=== PATIENT | male | born 1945 | race Caucasian/White ===

== ENCOUNTER → 2020-02-01 07:18 | Outpatient (CLI) | payer MEDICARE, OTHER, SELFPAY ==
[2020-02-01 08:40] LABS: Alanine Aminotransferase 18 IU/L (<50); Albumin Globulin Ratio 1.3 (1.0-2.8); Alkaline Phosphatase 79 U/L (38-126); Aspartate Aminotransferase 26 IU/L (17-59); BUN Creatinine Ratio 26.7 (6-22); Bilirubin Total 0.4 mg/dL (0.2-1.3); Blood Urea Nitrogen 24 mg/dL (9-20); Calcium 9.2 mg/dL (8.4-10.2); Carbon Dioxide 33 mmol/L (22-32); Chloride 104 mmol/L (98-107); Cholesterol 162 mg/dL (140-199); Estimated Glomerular Filt Rate > 60.0 mL/min (>60); Glucose 104 mg/dL (80-110); HDL Cholesterol 53 mg/dL (40-60); HEMOLYSIS < 15 (0-50); LDL Cholesterol Calculated 85 mg/dL (<100); Potassium 4.2 mmol/L (3.4-5.1); Sodium 138 mmol/L (137-145); Triglycerides 121 mg/dL (35-150)
== END ==
PROVIDERS: PCP Family Medicine; Referring Provider Family Medicine; Visit Provider Family Medicine
DX: E78.5 Hyperlipidemia, unspecified (principal); I10 Essential (primary) hypertension; R13.10 Dysphagia, unspecified
CPT/HCPCS: 36415; 80053; 80061; 82043; 82570

== ENCOUNTER → 2020-02-21 11:14 | Outpatient (CLI) | payer MEDICARE, OTHER, SELFPAY ==
--- NOTE | 2020-02-21 11:15 | DI.RAD.S_ITS ---
PROCEDURE: FL BARIUM SWALLOW INDICATIONS: difficulty swallowing solids COMPARISON: None. FINDINGS: Function: There is decrease in delayed esophageal peristalsis. No elicited gastroesophageal reflux. There is delayed transit of a calibrated barium tablet through the esophagus , which persisted till the end of the examination Morphology: Air-contrast images demonstrate normal mucosal morphology. Single contrast views show no esophageal strictures, extrinsic mass effects, or diverticula. Limited images of the stomach demonstrate normal appearance. IMPRESSION: Esophageal dysmotility as above. Mild ill-defined narrowing of the upper esophagus at the level of the thoracic inlet. Of note, there was prolonged delayed transit of a calibrated barium tablet during the entire examination at this area. Technically, cannot exclude mild stricture. Further evaluation of this finding could be performed with endoscopy as clinical suspicion dictates. Dictated by: Levy Corley M.D. on 02/21/2020 at 13:02 Approved by: Levy Corley M.D. on 02/21/2020 at 13:06
--- NOTE | 2020-02-21 11:15 | DI.RAD.S_ITS ---
PROCEDURE: XR SHOULDER RT MIN 2V INDICATIONS: Chronic right shoulder pain TECHNIQUE: 3 views of the shoulder were acquired. COMPARISON: None. FINDINGS: Bones: No fractures or dislocations. No suspicious bony lesions. Visualized ribs appear intact. AC joint degeneration, with chronic ununited osteophytes. Scattered degenerative subchondral sclerosis and spurring. Glenohumeral joint degeneration, mild. Soft tissues: No suspicious soft tissue calcifications. IMPRESSION: Mild right shoulder joint degeneration. If the patient's pain or other symptoms persist, consider further evaluation with MRI Dictated by: Levy Corley M.D. on 02/21/2020 at 13:38 Approved by: Levy Corley M.D. on 02/21/2020 at 13:39
== END ==
PROVIDERS: PCP Family Medicine; Referring Provider Family Medicine; Visit Provider Family Medicine
DX: M19.011 Primary osteoarthritis, right shoulder (principal); R13.10 Dysphagia, unspecified
CPT/HCPCS: 73030; 74220

== ENCOUNTER → 2020-03-08 09:43 | Outpatient (CLI) | payer MEDICARE, OTHER, SELFPAY ==
[2020-03-08] MEDS: COVID-19 VACC #1, MRNA(MOD) 100 MCG/0.5 ML VIAL IM (09:45)
== END ==
PROVIDERS: PCP Family Medicine; Visit Provider Internal Medicine
DX: Z23 Encounter for immunization (principal)
CPT/HCPCS: 0011A; 91301

== ENCOUNTER → 2020-03-16 10:48 | Outpatient (CLI) | payer MEDICARE, OTHER, SELFPAY ==
[2020-03-16 14:41] LABS: COVID19 -Nasal RAPID Negative (Negative)
== END ==
PROVIDERS: PCP Family Medicine; Visit Provider Nurse Practitioner
DX: Z01.812 Encounter for preprocedural laboratory examination (principal); Z20.822 Contact with and (suspected) exposure to COVID-19
CPT/HCPCS: 87635; C9803

== ENCOUNTER 2020-03-18 09:43 | Day surgery (SDC) | payer MEDICARE, OTHER, SELFPAY ==
[2020-03-18] VITALS (7 sets, daily range): BP systolic 126–171; BP diastolic 70–84; PULSE 70–95; RESP 9–17; TEMP 36.2–37.1; O2SAT 92–99; BMI 30.1
[2020-03-18] MEDS: LACTATED RINGERS 1,000 ML 200 ML IV (10:23)
--- NOTE | 2020-03-18 11:19 | PM.PREOP ---
Pre-operative Note Interval Note History & Physical reviewed/Exam performed by Physician: Yes Changes to H&P: No
[2020-03-18] MEDS: LIDOCAINE 4% SOLN 50 ML 20 ML TOP (11:40)
[2020-03-18] MEDS: fentaNYL 250 MCG/5 ML INJ IV (11:42)
[2020-03-18] MEDS: MIDAZOLAM 5 MG/5 ML VIAL IV (11:43)
--- NOTE | 2020-03-18 11:46 | PM.OP.ENDO ---
Operative Date/Time/Diagnoses Date of procedure: 03/18/20 Time of procedure: 11:46 Pre-op diagnosis: dysphagia Post-op diagnosis: same Procedure & Clinicians Study performed: esophagoduodenoscopy Same procedure as scheduled: Yes Indications: 74M with dysphagia to solid food no stricture on esophagram. Surgeon: Bo De La Cruz Procedure Notes Procedure in detail: Patient placed in left lateral decubitus position. Time out was performed. Procedural sedation was administered with Versed and Fentanyl. A bite block was placed. the scope was inserted into the mouth and into the proximal esophagus. At 20 cm from the incisors in the superior aspect of the esophagus there was circumferential stenosis of an approximately 4 cm segment. The EGD scope barely passed through this but I was able to intubate the stomach. The esophageal mucosa here was especially friable. A superficial mucosa tear was seen at the area of stenosis after passing the scope through, and given this I elected to perform no biopsy. The pylorus was intubated and the duodenum was normal to the 2nd portion. The scope was retroflexed within the stomach and there was a small hiatal hernia. No ulcers, or gastritis. The scope was withdrawn into the esophagus the Z line was seen at 40 cm from the incisions. There was no Sanchez's esophagitis, masses or strictures. Stomach was desufflated and scope removed. Patient tolerated procedure well. Findings: other findings (esophageal stenosis) Specimen(s): none sent Complications: none Impression: esophageal stenosis Post-procedure Recommendations: Other recommendation (refer to [facility] thoracic surgery) Disposition: same day surgery
--- NOTE | 2020-03-18 11:47 | SUR.OPER ---
PATIENT TOLERATED PROCEDURE WELL,VITAL SIGNS STABLE
== END 2020-03-18 12:32 | disposition home or self-care (01) ==
PROVIDERS: PCP Family Medicine; Referring Provider Surgery; Visit Provider Surgery
PROC: 0DJ08ZZ Inspection of Upper Intestinal Tract, Via Natural or Artificial Opening Endoscopic (ICD-10-PCS; CPT 43235; principal; 2020-03-18 10:45)
DX: K22.2 Esophageal obstruction (principal); I10 Essential (primary) hypertension; E78.5 Hyperlipidemia, unspecified; K44.9 Diaphragmatic hernia without obstruction or gangrene
CPT/HCPCS: 43235; J2250; J3010

== ENCOUNTER → 2020-03-29 09:04 | Outpatient (CLI) | payer MEDICARE, OTHER, SELFPAY ==
[2020-04-01 11:36] LABS: Fecal Immunochemical Test Negative (Negative)
== END ==
PROVIDERS: PCP Family Medicine; Referring Provider Family Medicine; Visit Provider Family Medicine
DX: Z12.11 Encounter for screening for malignant neoplasm of colon (principal)
CPT/HCPCS: 82274

== ENCOUNTER → 2020-04-03 09:07 | Outpatient (CLI) | payer MEDICARE, OTHER, SELFPAY ==
--- NOTE | 2020-04-03 09:08 | DI.US.S_ITS ---
PROCEDURE: US ABD AORTA ANEURYSM SCREEN INDICATIONS: ABDOMINAL AORTIC ANERUSYM SCREENING TECHNIQUE: Real time scanning was performed of the aorta and iliac arteries, with image documentation. COMPARISON: None. FINDINGS: Aorta: Proximal aortic diameter measures 2.9 cm. Mid-aorta measures 1.7 cm. Distal aortic diameter is 2 cm. Iliac arteries: Right common iliac artery measures 1.4 cm. Left common iliac artery measures 1.3 cm. IMPRESSION: Negative for aneurysm. Dictated by: Chivo Hawthorne M.D. on 04/03/2020 at 9:36 Approved by: Chivo Hawthoren M.D. on 04/03/2020 at 9:36
== END ==
PROVIDERS: PCP Family Medicine; Referring Provider Family Medicine; Visit Provider Family Medicine
DX: Z13.6 Encounter for screening for cardiovascular disorders (principal); Z87.891 Personal history of nicotine dependence
CPT/HCPCS: 76706

== ENCOUNTER → 2020-04-05 08:45 | Outpatient (CLI) | payer MEDICARE, OTHER, SELFPAY ==
[2020-04-05] MEDS: COVID-19 VACC #2, MRNA(MOD) 100 MCG/0.5 ML VIAL IM (08:49)
== END ==
PROVIDERS: PCP Family Medicine; Visit Provider Internal Medicine
DX: Z23 Encounter for immunization (principal)
CPT/HCPCS: 0012A; 91301

== ENCOUNTER → 2021-11-22 11:06 | Outpatient (CLI) | payer MEDICARE, OTHER, SELFPAY ==
[2021-11-22 12:24] LABS: COVID19 -Nasal RAPID Negative (Negative)
== END ==
PROVIDERS: PCP Family Medicine; Visit Provider Registered Nurse
DX: Z20.822 Contact with and (suspected) exposure to COVID-19 (principal)
CPT/HCPCS: 87635

== ENCOUNTER → 2023-08-07 09:41 | Outpatient (CLI) | payer MEDICARE, OTHER, SELFPAY ==
--- NOTE | 2023-08-07 09:43 | DI.CT.S_ITS ---
PROCEDURE: CT CHEST WO CON INDICATIONS: Pulmonary nodule TECHNIQUE: Noncontrast 5 mm thick sections acquired from the pulmonary apices to the posterior costophrenic angles. 1 mm lung window, 5 mm thick coronal and sagittal and 7 mm axial MIP reformats were then acquired. For radiation dose reduction, the following was used: automated exposure control, adjustment of mA and/or kV according to patient size. COMPARISON: Outside Facility, RG, CT THORAX/ABDOMEN/PELVIS WITH CONTRAST, 04/10/2020, 12:33. FINDINGS: Image quality: Diagnostic. Lower Neck: No enlarged lymph nodes. Thyroid: No thyroid nodules which require sonographic follow up, per consensus guidelines. Axillae: No enlarged lymph nodes. Chest Wall: Unremarkable. Bones: Unremarkable. Lungs and Pleura: No pneumothorax or pleural effusions. A 6 mm pulmonary nodule in the right upper lobe is stable, previous image 46 of series 3 and current image 125 of series 3. There is a 5 mm stable right upper lobe pulmonary nodule on current image 78 of series 3 and prior image 28 of series 3. is stable in size, present on image 78 of series 3. Other pulmonary findings are stable. Again noted is cystic bronchiectasis with bronchial wall thickening present in the left lower lobe with tree-in-bud opacities. There is some mucous plugging. There is mild bronchiectasis in the other lobes. There is mild tree-in-bud opacity present in the right upper lobe. Heart: Heart size is normal. No pericardial effusion. Thoracic Vessels: The aorta and pulmonary arteries demonstrate normal size. Mediastinum and Fannie: No enlarged lymph nodes. Esophagus: No wall thickening. No hiatal hernia. Upper Abdomen: Visualized upper abdomen solid organs and bowel loops appear normal. IMPRESSION: 1. Stable pulmonary nodules. 2. Other pulmonary findings are stable, including bronchiectasis with bronchial wall thickening in all lobes, most notably in the left lower lobe, as well as tree-in-bud opacities in the left lower lobe and right upper lobe. Dictated by: Everett Lema M.D. on 08/17/2023 at 14:42 Approved by: Everett Lema M.D. on 08/17/2023 at 14:50
== END ==
PROVIDERS: PCP Family Medicine; Referring Provider Family Medicine; Visit Provider Family Medicine
DX: R91.8 Other nonspecific abnormal finding of lung field (principal); J47.9 Bronchiectasis, uncomplicated
CPT/HCPCS: 71250

== ENCOUNTER → 2023-08-11 07:52 | Outpatient (CLI) | payer MEDICARE, OTHER, SELFPAY ==
[2023-08-11 08:33] LABS: Add Manual Diff / Slide Review NO; Basophils Absolute Auto 100 /uL (0-100); Basophils Percent Auto 0.8 % (0-2); Eosinophils Absolute Auto 200 /uL (0-450); Eosinophils Percent Auto 3.3 % (2-4); Hematocrit 40.9 % (41-53); Hemoglobin 13.5 g/dL (13.5-17.5); Lymphocytes Absolute Auto 1300 /uL (1100-4500); Lymphocytes Percent Auto 20.2 % (25-40); Mean Corpuscular HGB Conc 33.1 % (30-36); Mean Corpuscular Hemoglobin 29.2 PG (26-34); Mean Corpuscular Volume 88.2 fL (80-100); Monocytes Absolute Auto 600 /uL (0-900); Monocytes Percent Auto 9.7 % (3-14); Neutrophils Absolute Auto 4100 /uL (1500-7000); Platelet Count 236 X10^3/uL (150-400); Red Blood Cell Count 4.63 X10^6/uL (4.5-5.9); Red Cell Distribution Width 13.9 % (11.6-14.8); White Blood Cell Count 6.2 X10^3/uL (4.5-11.0)
[2023-08-11 08:37] LABS: Alanine Aminotransferase 23 IU/L (<50); Albumin Globulin Ratio 1.3 (1.0-2.8); Alkaline Phosphatase 70 U/L (38-126); Aspartate Aminotransferase 25 IU/L (17-59); BUN Creatinine Ratio 19.3 (6-22); Bilirubin Total 0.7 mg/dL (0.2-1.3); Blood Urea Nitrogen 22 mg/dL (9-20); Calcium 9.1 mg/dL (8.4-10.2); Carbon Dioxide 29 mmol/L (22-32); Chloride 107 mmol/L (98-107); Cholesterol 112 mg/dL (140-199); Estimated Glomerular Filt Rate > 60 mL/min (>60); Globulin 3.1 g/dL (1.7-4.1); Glucose 109 mg/dL (80-110); HDL Cholesterol 46 mg/dL (40-60); HEMOLYSIS < 15 (0-50); LDL Cholesterol Calculated 55 mg/dL (<100); Potassium 4.3 mmol/L (3.4-5.1); Sodium 141 mmol/L (137-145); Total Protein 7.1 g/dL (6.3-8.2); Triglycerides 57 mg/dL (35-150)
[2023-08-11 08:49] LABS: Creatinine Urine Random 100.96 mg/dL
[2023-08-11 09:02] LABS: TSH w/ Reflex to FT4 2.44 uIU/mL (0.47-4.68)
[2023-08-11 09:05] LABS: Prostate Specific Antigen Scrn 0.782 ng/mL (0.1-4.0)
[2023-08-11 10:03] LABS: Microalbumin Urine Random 71.7 mg/dL (0-1.6)
[2023-08-12 07:11] LABS: Apolipoprotein B 61 mg/dL (<90)
[2023-08-12 15:01] LABS: Hep C Virus Ab w/Reflex Quant NEGATIVE s/c (NEGATIVE)
== END ==
PROVIDERS: PCP Family Medicine; Referring Provider Family Medicine; Visit Provider Family Medicine
DX: Z00.00 Encounter for general adult medical examination without abnormal findings (principal); K22.2 Esophageal obstruction; E78.5 Hyperlipidemia, unspecified; Z12.5 Encounter for screening for malignant neoplasm of prostate; I10 Essential (primary) hypertension; Z87.891 Personal history of nicotine dependence
CPT/HCPCS: 36415; 80053; 80061; 82043; 82172; 82570; 84443; 85025; 86803; G0103

== ENCOUNTER → 2023-09-02 07:54 | Outpatient (CLI) | payer MEDICARE, OTHER, SELFPAY ==
--- NOTE | 2023-09-02 07:57 | DI.ECHO.S_ITS ---
[facility] : : [address] : : [place] : : [id number] : : Phone: [phone] Echocardiogram Report + + :Name: EDELMIRA BENTLEY Study Date: 09/02/2023 Height: 69 in : :Hospital ReadingLocation: Weight: 190 lb : : Gender: Male BSA: 2.0 m2 : :: 1945 Age: 78 yrs BP: 130/72 mmHg: :Reason For Study: NEW ATRIAL FIBRILLATION : :Ordering Physician: AALIYAH, : :BRUNO Performed By: Katina Cole : :Referring: BRUNO FISCHER : + + Interpretation Summary 1) Normal left ventricular thickness, size, wall motion, and systolic function (EF 55-60%). 2) Upper normal right ventricular size with normal function. 3) No significant valvular abnormalities. 4) No prior Echo available for comparison. Procedure: A two-dimensional transthoracic echocardiogram with color flow and Doppler was performed. The study quality was technically adequate. There is no prior echocardiogram noted for this patient. The patient was in atrial fibrillation with heart rates between 76-96 bpm during the exam. Left Ventricle: The left ventricle is normal in size and wall thickness. The ejection fraction is estimated to be 55-60%. Left ventricular systolic function appears normal without focal wall motion abnormalities. Diastolic function could not be accurately assessed due to atrial fibrillation. Right Ventricle: The right ventricle is normal in size and function. Atria: The left atrial size is normal. The right atrium is moderately dilated. There is no Doppler evidence for an interatrial shunt. Mitral Valve: The mitral valve is normal in structure and function. There is trace mitral regurgitation. Aortic Valve: The aortic valve is trileaflet. The aortic valve opens well. There is no aortic valve stenosis. There is trace aortic regurgitation. Tricuspid Valve: The tricuspid valve leaflets are thin and pliable. There is mild tricuspid regurgitation. The right ventricular systolic pressure is estimated to be at least 29 mmHg based on an estimated right atrial pressure of 8 mm Hg. Pulmonic Valve: The pulmonic valve leaflets are thin and pliable; valve motion is normal. There is no pulmonic valvular regurgitation. Great Vessels: The aortic root is normal size. The dimensions of the ascending aorta are normal. The IVC is dilated (diameter is greater than 2.1 cm) yet it collapses greater than 50% with a sniff. This suggests a right atrial pressure of 8 mm Hg. Pericardium/ Pleura There is no pericardial effusion. There is no pleural effusion. MMode/2D Measurements & Calculations LVIDd: 4.6 cm LVOT diam: 2.1 cm LVIDs: 2.9 cm Ao root diam: 3.4 cm FS: 36.1 % asc Aorta Diam: 3.1 cm IVSd: 0.96 cm Ao Arch Diam (Prox Trans): 2.6 cm LVPWd: 0.82 cm LV thompson. diameter/BSA (cm/m^2): 2.3 LV sys. diameter/BSA (cm/m^2): 1.4 LA A2 area: 20.6 cm2 RA long axis: 5.9 cm LA A4 area: 18.5 cm2 RA area: 24.7 cm2 LA length (vol): 6.2 cm RA vol: 87.9 ml LA vol: 51.7 ml RA : 43.5 ml/m2 LA vol index: 25.6 ml/m2 IVC diam: 2.1 cm RVD1 (basal): 4.0 cm RVD2 (mid): 3.4 cm TAPSE: 1.9 cm Doppler Measurements & Calculations Ao V2 max: 112.0 cm/sec LVOT Max Roddy: 67.3 cm/sec Ao V2 mean: 78.7 cm/sec LV V1 max P.8 mmHg Ao max P.1 mmHg LV V1 VTI: 14.3 cm Ao mean P.8 mmHg EDUARD(I,D): 2.2 cm2 Ao V2 VTI: 22.3 cm EDUARD(V,D): 2.1 cm2 sev ratio: 0.64 EDUARD indexed to BSA (cm^2/m^2): 1.1 MV E max roddy: 94.6 cm/sec TR max roddy: 231.2 cm/sec MV A max roddy: 1.6 cm/sec TR max P.4 mmHg MV E/A: 59.3 PA V2 max: 67.5 cm/sec Med Peak E' Roddy: 14.5 cm/sec PA V2 mean: 48.2 cm/sec E/E' med: 6.5 PA mean P.0 mmHg Lat Peak E' Roddy: 11.9 cm/sec PA pr(Accel): 44.7 mmHg E/E' lat: 8.0 E/e' average: 7.2 MV dec time: 0.21 sec SV(LVOT): 50.0 ml Reading Physician:11:10 AM
== END ==
PROVIDERS: PCP Family Medicine; Referring Provider Family Medicine; Visit Provider Family Medicine
DX: I07.1 Rheumatic tricuspid insufficiency (principal); I48.91 Unspecified atrial fibrillation
CPT/HCPCS: 93306

== ENCOUNTER → 2023-09-07 08:58 | Outpatient (CLI) | payer MEDICARE, OTHER, SELFPAY ==
[2023-09-07 10:00] LABS: Alanine Aminotransferase 18 IU/L (<50); Albumin 3.9 g/dL (3.5-5.0); Albumin Globulin Ratio 1.4 (1.0-2.8); Alkaline Phosphatase 71 U/L (38-126); Aspartate Aminotransferase 23 IU/L (17-59); BUN Creatinine Ratio 16.7 (6-22); Bilirubin Total 0.7 mg/dL (0.2-1.3); Blood Urea Nitrogen 19 mg/dL (9-20); Calcium 8.7 mg/dL (8.4-10.2); Carbon Dioxide 29 mmol/L (22-32); Chloride 106 mmol/L (98-107); Estimated Glomerular Filt Rate > 60 mL/min (>60); Globulin 2.8 g/dL (1.7-4.1); Glucose 109 mg/dL (80-110); HEMOLYSIS < 15 (0-50); Potassium 4.4 mmol/L (3.4-5.1); Sodium 138 mmol/L (137-145); Total Protein 6.7 g/dL (6.3-8.2)
[2023-09-07 10:35] LABS: Creatinine Urine Random 77.03 mg/dL
[2023-09-07 14:59] LABS: Microalbumin Urine Random 65.8 mg/dL (0-1.6)
== END ==
PROVIDERS: PCP Family Medicine; Referring Provider Family Medicine; Visit Provider Family Medicine
DX: I10 Essential (primary) hypertension (principal); E78.5 Hyperlipidemia, unspecified; Z87.891 Personal history of nicotine dependence; I48.91 Unspecified atrial fibrillation
CPT/HCPCS: 36415; 80053; 82043; 82570

== ENCOUNTER → 2023-09-10 16:13 | Outpatient (CLI) | payer MEDICARE, OTHER, SELFPAY | PROVIDERS: PCP Family Medicine; Visit Provider Student in an Organized Health Care Education/Training Program | DX: J47.9 Bronchiectasis, uncomplicated (principal) | CPT/HCPCS: 87070; 87205 ==

== ENCOUNTER → 2023-10-22 12:10 | Outpatient (CLI) | payer MEDICARE, OTHER, SELFPAY ==
[2023-10-22 13:42] LABS: Add Manual Diff / Slide Review NO; Basophils Absolute Auto 100 /uL (0-100); Basophils Percent Auto 0.8 % (0-2); Eosinophils Absolute Auto 300 /uL (0-450); Eosinophils Percent Auto 4.3 % (2-4); Hematocrit 40.8 % (41-53); Hemoglobin 13.5 g/dL (13.5-17.5); Lymphocytes Absolute Auto 1200 /uL (1100-4500); Lymphocytes Percent Auto 16.8 % (25-40); Monocytes Absolute Auto 600 /uL (0-900); Monocytes Percent Auto 8.5 % (3-14); Neutrophils Absolute Auto 4900 /uL (1500-7000); Neutrophils Percent Auto 69.6 % (50-75); Platelet Count 256 X10^3/uL (150-400); Red Blood Cell Count 4.64 X10^6/uL (4.5-5.9); Red Cell Distribution Width 14.2 % (11.6-14.8)
[2023-10-22 14:05] LABS: BUN Creatinine Ratio 21.3 (6-22); Blood Urea Nitrogen 26 mg/dL (9-20); Calcium 9.1 mg/dL (8.4-10.2); Carbon Dioxide 27 mmol/L (22-32); Chloride 106 mmol/L (98-107); Estimated Glomerular Filt Rate 60 mL/min (>60); Glucose 114 mg/dL (80-110); HEMOLYSIS < 15 (0-50); Potassium 4.4 mmol/L (3.4-5.1); Sodium 139 mmol/L (137-145)
== END ==
PROVIDERS: PCP Family Medicine; Referring Provider Internal Medicine; Visit Provider Internal Medicine
DX: I48.91 Unspecified atrial fibrillation (principal)
CPT/HCPCS: 36415; 80048; 85025

== ENCOUNTER → 2023-12-13 09:48 | Outpatient (CLI) | payer MEDICARE, OTHER, SELFPAY ==
[2023-12-13 11:19] LABS: Add Manual Diff / Slide Review NO; Basophils Absolute Auto 0 /uL (0-100); Basophils Percent Auto 0.6 % (0-2); Eosinophils Absolute Auto 200 /uL (0-450); Eosinophils Percent Auto 2.5 % (2-4); Hematocrit 38.9 % (41-53); Hemoglobin 12.9 g/dL (13.5-17.5); Lymphocytes Absolute Auto 900 /uL (1100-4500); Mean Corpuscular HGB Conc 33.1 % (30-36); Mean Corpuscular Hemoglobin 29.9 PG (26-34); Mean Corpuscular Volume 90.5 fL (80-100); Monocytes Absolute Auto 600 /uL (0-900); Monocytes Percent Auto 8.1 % (3-14); Neutrophils Absolute Auto 5500 /uL (1500-7000); Neutrophils Percent Auto 75.8 % (50-75); Platelet Count 389 X10^3/uL (150-400); Red Cell Distribution Width 14.7 % (11.6-14.8); White Blood Cell Count 7.3 X10^3/uL (4.5-11.0)
[2023-12-13 12:11] LABS: BUN Creatinine Ratio 15.8 (6-22); Blood Urea Nitrogen 18 mg/dL (9-20); Calcium 9.3 mg/dL (8.4-10.2); Carbon Dioxide 32 mmol/L (22-32); Chloride 102 mmol/L (98-107); Estimated Glomerular Filt Rate > 60 mL/min (>60); Glucose 105 mg/dL (80-110); HEMOLYSIS < 15 (0-50); Potassium 5.1 mmol/L (3.4-5.1); Sodium 141 mmol/L (137-145)
== END ==
PROVIDERS: PCP Family Medicine; Referring Provider Internal Medicine; Visit Provider Internal Medicine
DX: I48.19 Other persistent atrial fibrillation (principal)
CPT/HCPCS: 36415; 80048; 85025

== ENCOUNTER → 2024-01-17 13:17 | Outpatient (CLI) | payer MEDICARE, OTHER, SELFPAY ==
[2024-01-17 13:47] LABS: Hematocrit 42.4 % (41-53); Hemoglobin 13.8 g/dL (13.5-17.5)
[2024-01-17 14:09] LABS: BUN Creatinine Ratio 19.8 (6-22); Blood Urea Nitrogen 23 mg/dL (9-20); Calcium 9.3 mg/dL (8.4-10.2); Carbon Dioxide 30 mmol/L (22-32); Chloride 105 mmol/L (98-107); Estimated Glomerular Filt Rate > 60 mL/min (>60); Glucose 123 mg/dL (80-110); HEMOLYSIS < 15 (0-50); Potassium 4.3 mmol/L (3.4-5.1); Sodium 140 mmol/L (137-145)
[2024-01-17 14:49] LABS: Creatinine Urine Random 107.87 mg/dL; Protein (Total) Urine Random 90 mg/dL (0-12); Protein Creatinine Ratio Urine 0.83 GRAM/24H
== END ==
LOC: LAB 13:19
PROVIDERS: Student in an Organized Health Care Education/Training Program; PCP Family Medicine; Referring Provider Internal Medicine; Visit Provider Internal Medicine
DX: Z01.812 Encounter for preprocedural laboratory examination (principal); I10 Essential (primary) hypertension; N05.9 Unspecified nephritic syndrome with unspecified morphologic changes; R80.9 Proteinuria, unspecified; D64.9 Anemia, unspecified
CPT/HCPCS: 36415; 80048; 82570; 84156; 85014; 85018

== ENCOUNTER 2024-01-22 15:14 | Inpatient (IN) | payer MEDICARE, OTHER, SELFPAY ==
[2024-01-22] VITALS (13 sets, daily range): BP systolic 141–181; BP diastolic 68–87; PULSE 80–88; RESP 17–32; TEMP 36.1–36.9; O2SAT 87–98; BMI 27.3
--- NOTE | 2024-01-22 15:22 | DI.RAD.S_ITS ---
PROCEDURE: XR CHEST 1V INDICATIONS: chest pain TECHNIQUE: One view of the chest was acquired. COMPARISON: None. FINDINGS: Surgical changes and devices: None. Lungs and pleura: There is mild retrocardiac opacity. No pleural effusions or pneumothorax. Mediastinum: Mediastinal contours appear normal. Heart size is normal. Bones and chest wall: No suspicious bony lesions. Overlying soft tissues appear unremarkable. IMPRESSION: Retrocardiac opacity which may represent pneumonia versus summation of shadows. If the clinical presentation is not consistent with an infectious process PA lateral radiographs should be considered. Dictated by: Janel Ocasio M.D. on 01/22/2024 at 14:59 Approved by: Janel Ocasio M.D. on 01/22/2024 at 15:01
--- NOTE | 2024-01-22 15:29 | EKG_ITS ---
[address] [address] Test Date: 2024-01-22 Pat Name: Eren Walters Department: [facility] Room: Gender: Male Inclusion Special Educator: : 1945 Requested By: Order Number: [id number] Reading MD: Yariel Zuluaga MD Measurements Intervals Rice Rate: 85 P: 74 WA: 170 QRS: 42 QRSD: 130 T: 37 QT: 430 QTc: 511 Interpretive Statements Sinus rhythm with premature atrial complexes Right bundle branch block NO PRIOR TRACING Electronically Signed On 01-22-2024 16:17:43 PST by Yariel Zuluaga MD
[2024-01-22 16:02] LABS: INR 1.4 (0.9-1.3); Prothrombin Time 16.1 SECONDS (9.4-12.5)
[2024-01-22 16:05] LABS: PTT Partial Thromboplastin Tim 34 SECONDS (25.1-36.5)
[2024-01-22 16:06] LABS: Add Manual Diff / Slide Review NO; Basophils Absolute Auto 100 /uL (0-100); Basophils Percent Auto 0.5 % (0-2); Eosinophils Absolute Auto 100 /uL (0-450); Eosinophils Percent Auto 1.1 % (2-4); Hematocrit 39.4 % (41-53); Hemoglobin 12.8 g/dL (13.5-17.5); Lymphocytes Absolute Auto 900 /uL (1100-4500); Lymphocytes Percent Auto 8.2 % (25-40); Mean Corpuscular HGB Conc 32.6 % (30-36); Mean Corpuscular Hemoglobin 29.9 PG (26-34); Mean Corpuscular Volume 91.7 fL (80-100); Monocytes Absolute Auto 1300 /uL (0-900); Neutrophils Absolute Auto 8800 /uL (1500-7000); Neutrophils Percent Auto 78.2 % (50-75); Platelet Count 216 X10^3/uL (150-400); Red Blood Cell Count 4.29 X10^6/uL (4.5-5.9); Red Cell Distribution Width 14.7 % (11.6-14.8); White Blood Cell Count 11.2 X10^3/uL (4.5-11.0)
[2024-01-22 16:07] LABS: Alanine Aminotransferase 27 IU/L (<50); Albumin 4.4 g/dL (3.5-5.0); Albumin Globulin Ratio 1.2 (1.0-2.8); Alkaline Phosphatase 73 U/L (38-126); Aspartate Aminotransferase 44 IU/L (17-59); BUN Creatinine Ratio 18.7 (6-22); Bilirubin Total 1.1 mg/dL (0.2-1.3); Blood Urea Nitrogen 29 mg/dL (9-20); Calcium 8.8 mg/dL (8.4-10.2); Carbon Dioxide 25 mmol/L (22-32); Chloride 103 mmol/L (98-107); Creatine Kinase 164 U/L (55-170); Estimated Glomerular Filt Rate 45 mL/min (>60); Globulin 3.6 g/dL (1.7-4.1); Glucose 125 mg/dL (80-110); HEMOLYSIS 43 (0-50); Lipase 58 U/L (23-300); Magnesium 2.4 mg/dL (1.6-2.3); Potassium 5.1 mmol/L (3.4-5.1); Sodium 136 mmol/L (137-145)
--- NOTE | 2024-01-22 16:12 | ED_ITS ---
HPI - Chest Pain General Chief Complaint: Chest Pain Stated Complaint: heart sx, SOB, getting worse Time Seen by Provider: 01/22/24 16:11 Source: patient and family Mode of arrival: Ambulatory History of Present Illness HPI narrative: 78-year-old male history of atrial fibrillation, hypertension dyslipidemia esophageal stenosis, nicotine dependence chronically anticoagulated on apixaban. Patient presents with complaint of chest discomfort since Wednesday. Patient had a cardiac ablation at [facility] was discharged home around 7:00 p.m. Wednesday felt okay but started to have some discomfort in his chest substernally which has increased throughout Wednesday and into today. Describes increasing chest discomfort. He describes pleuritic chest pain. He feels short of breath but describes it more as being painful with inhalation. Denies fevers or chills. He has had occasional cough. No productive sputum or hemoptysis. No nausea or vomiting. No syncope. No other new GI or urinary symptoms. No new swelling in extremities. Had a prescription for anti-inflammatory sent by the physician and has taken 1 or 2 doses but without improvement. Patient does have a POLST on file he is DNR/DNI. Follows with Cardiology through [facility]. Saw Dr. Clayton for EP. Related Data Home Medications Medication Instructions Recorded Confirmed fexofenadine-pseudoephedrine ER 1 tab PO QDAY ##0 07/05/12 09/10/23 180 mg-240 mg tablet,ext.release 24 hr (Bertha-D 24 Hour) Previous Rx's Medication Instructions Recorded apixaban 5 mg tablet (Eliquis) 5 mg PO BID #60 tabs 08/06/23 metoprolol succinate 25 mg 25 mg PO DAILY #90 tabs 09/01/23 tablet,extended release 24 hr PEP device #1 ea 09/10/23 albuterol sulfate 2.5 mg/0.5 mL 2.5 mg (0.5 mL) inhalation TID #30 09/10/23 solution for nebulization ea fluuter valve #1 ea 09/10/23 nebulizer #1 ea 09/10/23 amoxicillin 500 mg-potassium 1 tab PO BID #20 tabs 09/14/23 clavulanate 125 mg tablet (Augmentin) losartan 25 mg tablet 25 mg PO DAILY #90 tabs 12/27/23 Allergies Allergy/AdvReac Type Severity Reaction Status Date / Time No Known Drug Allergies Allergy Verified 01/22/24 15:16 Review of Systems Review of Systems ROS Unobtainable: All systems reviewed & are unremarkable except as noted in HPI and below Patient History Medical History (Updated 01/22/24 @ 17:56 by Matilde Rivera DO) Bronchiectasis Atrial fibrillation Chronic bronchitis Esophageal stenosis Dysphagia Right shoulder pain History of nicotine dependence Difficulty swallowing solids Hyperlipidemia Hypertension Surgical History (Updated 01/22/24 @ 18:47 by Su Stout MD) Status post catheter ablation of atrial fibrillation History of removal of cyst History of cataract removal with insertion of prosthetic lens Family History Unknown Cancer Father Hypertension Heart disease Cancer Social History household members: spouse Smoking Status: Former smoker Smoking Status: Former smoker alcohol intake frequency: holidays/special occasions only Exam Narrative Exam Narrative: GENERAL: Alert and oriented x three, elderly male in moderate distress HEENT: Head normocephalic, atraumatic, EOMI, pupils reactive, face symmetric, moist mucous membranes NECK: Supple, full range of motion CARDIOVASCULAR: Regular rate and rhythm without murmurs, rubs or gallops. No JVD. No edema bilateral lower extremities. RESPIRATORY: Breath sounds equal bilaterally, patient has expiratory wheeze bilaterally, no rhonchi, mild tachypnea. He is able to speak in full sentences. ABDOMEN: Soft, nontender. Normoactive bowel sounds all 4 quadrants. No guarding or rebound, rigidity, no mass : No CVA tenderness EXTREMITIES: Normal range of motion, no clubbing or edema. Neurovascularly intact NEUROLOGICAL: Cranial nerves II through XII grossly intact. Moving all extremities SKIN: Warm, dry, no petechiae, no rashes or lesions. Initial Vital Signs Initial Vital Signs: Vital Signs Temperature 97 F L 01/22/24 15:16 Pulse Rate 80 01/22/24 15:16 Respiratory Rate 18 01/22/24 15:16 Blood Pressure 180/84 H 01/22/24 15:16 Pulse Oximetry 96 01/22/24 15:16 Oxygen Delivery Method Room Air 01/22/24 15:16 Course Orders Ordered: ED Orders 12/14/24 15:22 XR chest 1V Stat EKG-12 Lead Stat 01/22/24 15:38 Complete Blood Count AUTO DIFF Stat Comprehensive Metabolic Panel Stat Lipase Stat Magnesium Stat NT-proBNP (BNP-Adult 18+) Stat PTT Partial Thromboplastin Joseph Stat Prothrombin Time INR Stat Troponin & CK Cardiac Panel Stat 01/22/24 16:58 CT angio chest PE protocol Stat 01/22/24 17:32 Trop I [Troponin I] Stat Hydrocodone Bitart/Acetaminophen (Hydrocodone/Acet 5/325 Tablet) 1 tab PO Q4H PRN PRN Reason: Pain, Moderate (4-6) Hydrocodone Bitart/Acetaminophen (Hydrocodone/Acet 5/325 Tablet) 2 tab PO Q4H PRN PRN Reason: Pain, Severe (7-10) Albuterol (Albuterol 2.5 Mg/3 Ml Neb (Adult)) 2.5 mg INH TID TERRANCE Apixaban (Apixaban 5 Mg Tablet) 5 mg PO BID [facility] Piperacillin Sod/Tazobactam (Sod 3.375 gm/ Sodium Chloride) 100 mls @ 25 mls/hr IV Q8H [facility] Losartan Potassium (Losartan 25 Mg Tablet) 25 mg PO DAILY [facility] Methylprednisolone (Methylprednisolone 125 Mg/2 Ml Vial) 60 mg IV Q8H TERRANCE Naloxone HCl (Naloxone 0.4 Mg/Ml Vial) 0.2 mg IV Q2MIN PRN PRN Reason: Opiate Reversal Ondansetron HCl (Ondansetron 4 Mg Odt) 4 mg PO Q8HR PRN PRN Reason: Nausea And Vomiting Sotalol HCl (Sotalol 80 Mg Tablet) 80 mg PO BID [facility] Discontinued Medications Albuterol (Albuterol 2.5 Mg/3 Ml Neb (Adult)) 2.5 mg INH NOW ONE Stop: 01/22/24 16:43 Last Admin: 01/22/24 16:56 Dose: 2.5 mg Documented By: SCAR Albuterol (Albuterol 2.5 Mg/3 Ml Neb (Adult)) 10 mg INH NOW ONE Stop: 01/22/24 17:50 Last Admin: 01/22/24 17:59 Dose: 10 mg Documented By: SCAR Aspirin (Aspirin 81 Mg Chew Tab) 324 mg PO NOW ONE Stop: 01/22/24 15:23 Last Admin: 01/22/24 16:10 Dose: Not Given Documented By: BRISA Ceftriaxone Sodium 2,000 mg/ (Sodium Chloride) 100 mls @ 200 mls/hr IV NOW ONE Stop: 01/22/24 17:50 Last Admin: 01/22/24 17:57 Dose: 200 mls/hr Documented By: BRISA Methylprednisolone (Methylprednisolone 125 Mg/2 Ml Vial) 125 mg IV NOW ONE Stop: 01/22/24 17:50 Last Admin: 01/22/24 17:56 Dose: 125 mg Documented By: BRISA Metoprolol Succinate (Metoprolol Er 25 Mg Tablet) 25 mg PO DAILY TERRANCE Morphine Sulfate (Morphine 4 Mg/Ml Inj) 4 mg IV NOW ONE Stop: 01/22/24 16:32 Last Admin: 01/22/24 16:36 Dose: 4 mg Documented By: BRISA Morphine Sulfate (Morphine 4 Mg/Ml Inj) 4 mg IV NOW ONE Stop: 01/22/24 18:10 Last Admin: 01/22/24 18:29 Dose: 4 mg Non-Formulary Medication (Albuterol Sulfate) 2.5 mg INHALATION TID TERRANCE Ondansetron HCl (Ondansetron 4 Mg/2 Ml Inj) 4 mg IV NOW ONE Stop: 01/22/24 16:32 Last Admin: 01/22/24 16:36 Dose: 4 mg Documented By: BRISA Vital Signs Vital signs: Vital Signs - 8 hr 01/22/24 15:16 01/22/24 15:39 01/22/24 15:39 Temperature 97 F L Pulse Rate 80 85 Respiratory Rate 18 25 H Blood Pressure 180/84 H 181/87 H Pulse Oximetry 96 97 Oxygen Delivery Method Room Air 01/22/24 16:00 01/22/24 16:00 01/22/24 16:03 Temperature Pulse Rate 84 Respiratory Rate 20 Blood Pressure 167/85 H Pulse Oximetry 95 95 Oxygen Delivery Method Room Air 01/22/24 16:30 01/22/24 16:30 01/22/24 16:56 Temperature Pulse Rate 82 86 Respiratory Rate 18 Blood Pressure 160/76 H Pulse Oximetry 94 95 Oxygen Delivery Method Room Air 01/22/24 17:59 Temperature Pulse Rate 88 Respiratory Rate 20 Blood Pressure Pulse Oximetry 90 L Oxygen Delivery Method Room Air MDM - Chest Pain Lab Data 01/22/24 15:38 01/22/24 15:38 Labs: Lab Results 01/22/24 01/22/24 Range/Units 15:38 17:32 WBC 11.2 H (4.5-11.0) X10^3/uL RBC 4.29 L (4.5-5.9) X10^6/uL Hgb 12.8 L (13.5-17.5) g/dL Hct 39.4 L (41-53) % MCV 91.7 (80-100) fL MCH 29.9 (26-34) PG MCHC 32.6 (30-36) % RDW 14.7 (11.6-14.8) % Plt Count 216 (150-400) X10^3/uL Neut % (Auto) 78.2 H (50-75) % Lymph % (Auto) 8.2 L (25-40) % [place] % (Auto) 12.0 (3-14) % Eos % (Auto) 1.1 L (2-4) % Baso % (Auto) 0.5 (0-2) % Neut # (Auto) 8800 H (7702-3078) /uL Lymph # (Auto) 900 L (6812-6201) /uL [place] # (Auto) 1300 H (0-900) /uL Eos # (Auto) 100 (0-450) /uL Baso # (Auto) 100 (0-100) /uL PT 16.1 H (9.4-12.5) SECONDS INR 1.4 H (0.9-1.3) APTT 34 (25.1-36.5) SECONDS Sodium 136 L (137-145) mmol/L Potassium 5.1 (3.4-5.1) mmol/L Chloride 103 (98-107) mmol/L Carbon Dioxide 25 (22-32) mmol/L BUN 29 H (9-20) mg/dL Creatinine 1.55 H (0.66-1.25) mg/dL Estimated GFR 45 L (>60) mL/min BUN/Creatinine Ratio 18.7 (6-22) Glucose 125 H (80-110) mg/dL Calcium 8.8 (8.4-10.2) mg/dL Magnesium 2.4 H (1.6-2.3) mg/dL Total Bilirubin 1.1 (0.2-1.3) mg/dL AST 44 (17-59) IU/L ALT 27 (<50) IU/L Alkaline Phosphatase 73 (38-126) U/L Total Creatine Kinase 164 (55-170) U/L Troponin I 0.229 H* 0.195 H* (0.01-0.034) ng/mL NT-Pro-B Natriuret Pep 1900 H (<450) pg/mL Total Protein 8.0 (6.3-8.2) g/dL Albumin 4.4 (3.5-5.0) g/dL Globulin 3.6 (1.7-4.1) g/dL Albumin/Globulin Ratio 1.2 (1.0-2.8) Lipase 58 (23-300) U/L Imaging Data Chest x-ray: Radiologist's Impression: Close Chest X-Ray (Signed) Janel Ocasio - 01/22/24 Echocardiogram Ultrasound (Signed) Marlys Rodriguez - 09/02/[address] (Signed) Everett Lema - 08/07/23 Abdominal Arterial Study US (Signed) Chivo Hawthorne - 04/03/20 Telemetry Strips 03/18/20 Shoulder X-Ray (Signed) Levy Corley - 02/21/20 Barium Swallow X-Ray (Signed) Levy Corley - 02/21/20 DI Result 02/16/20 Launch?[place] [id number] XRay Report Signed Patient: Eren Walters MR#: [id number] : 1945 Acct:[id number] Age/Sex: 78 / M Date of Service: 01/22/24 Loc: ED Accession Number: [id number] Procedure: XR chest 1V Ordering Provider: Matilde Rivera D.O. PROCEDURE: XR CHEST 1V INDICATIONS: chest pain TECHNIQUE: One view of the chest was acquired. COMPARISON: None. FINDINGS: Surgical changes and devices: None. Lungs and pleura: There is mild retrocardiac opacity. No pleural effusions or pneumothorax. Mediastinum: Mediastinal contours appear normal. Heart size is normal. Bones and chest wall: No suspicious bony lesions. Overlying soft tissues appear unremarkable. IMPRESSION: Retrocardiac opacity which may represent pneumonia versus summation of shadows. If the clinical presentation is not consistent with an infectious process PA lateral radiographs should be considered. Dictated by: Janel Ocasio M.D. on 01/22/2024 at 14:59 Approved by: Janel Ocasio M.D. on 01/22/2024 at 15:01 ECG Data Attestation: I personally reviewed and interpreted this ECG as follows: Interpretation: Sinus rhythm, premature atrial complexes rate 85 TN 170 QRS of 130 QTC of 511, no acute ST elevation or depression. No prior for comparison. MDM Narrative Medical decision making narrative: 78-year-old male anticoagulated on apixaban had recent cardiac ablation 2 days prior has had increased chest pain the describes as pleuritic and shortness of breath. On evaluation afebrile patient is hypertensive, no tachycardia no hypoxia. Labs show white count 11.2 hemoglobin of 12.8 was 13.8 5 days ago, patient has platelets of 216. Chemistries show sodium 136 potassium 5.1 chloride of 103 CO2 of 25 BUN 29 creatinine of 1.55 bumped up from prior in August through January 17, 2024 when patient was at 1.16-1.22. Glucose is 125 Mag is 2.4 LFTs are negative, troponin elevated at 0.229, we will repeat this as patient is slightly elevated secondary to recent ablation and we will trend out to see if elevating. BNP is 1900. Lipase is negative. Repeat troponin trended downwards at 0.195 Retrocardiac opacity which may represent pneumonia versus summation of shadows no pleural effusions or pneumothorax. EKG shows sinus with premature atrial complexes rate 85 TN 170 QRS of [address] chest was obtained to evaluate for pericardial effusion or posterior pneumonia patient has pain shortness of breath in the setting of a recent ablation is higher risk for pericardial effusion. CTA shows no pulmonary embolism, no pericardial effusion. Bronchiectasis with bronchial wall thickening interstitial thickening ground-glass PAS and few small areas of consolidation left lower lobe some this is unchanged from prior but consolidations or new with interstitial thickening more prominent. Patient was given dose of pain medication. Has a little bit wheezy on exam we will also give him albuterol. On recheck patient had improvement but did have some decrease in O2. Patient was given an additional albuterol, Solu-Medrol. Did have improvement in his pain with 1st dose of pain medication but feels probably benefit from some additional so another dose was given. Patient has not had significant increase in work of breathing. Spoke with Dr. Nicole, cardiology at [facility]: He follows the patient himself. States he calcium about 4 weeks ago at that time he would negative coronaries did have an ablation with Dr. Clayton. Reviewed troponin is positive but trending down words which is somewhat expected finding post ablation reviewed his labs CT angio which does not show pericardial effusion but does show possible bronchiectasis with some consolidation. Agrees with plan to treat for potential pneumonia. 1830 Dr. Stout, hospitalist: accepts reviewed findings from today patient's recent course of clinical care, consult with cardiology. Discharge Plan Departure Patient Disposition: Admitted as Observation Clinical Impression: Pneumonia, History of cardiac ablation for atrial fibrillation Admit Date/Time: 01/22/24 18:23 Admit Provider: Su Stout
[2024-01-22 16:18] LABS: NT-proBNP (BNP-Adult 18+) 1900 pg/mL (<450)
[2024-01-22 16:32] LABS: Troponin I 0.229 ng/mL (0.01-0.034)
[2024-01-22] MEDS: MORPHINE 4 MG/ML INJ IV ×2 (16:36→18:29)
[2024-01-22] MEDS: ONDANSETRON 4 MG/2 ML INJ IV (16:36)
[2024-01-22] MEDS: ALBUTEROL 2.5 MG/3 ML NEB (ADULT) INH (16:56)
--- NOTE | 2024-01-22 16:58 | DI.CT.S_ITS ---
PROCEDURE: CT ANGIO CHEST PE PROTOCOL INDICATIONS: CP/SOB since wednesday, had cardiac ablation TECHNIQUE: After the administration of intravenous contrast, 2 mm thick sections acquired from the pulmonary apices to the posterior costophrenic angles. 3-dimensional maximum intensity projection (MIP) coronal and sagittal reformats were then acquired through the thorax. For radiation dose reduction, the following was used: automated exposure control, adjustment of mA and/or kV according to patient size. COMPARISON: None. FINDINGS: Image quality: Diagnostic. Pulmonary arteries: Pulmonary arteries are normal in size, and demonstrate no intraluminal filling defects to suggest central pulmonary embolism. Lower Neck: No enlarged lymph nodes. Thyroid: No suspicious thyroid nodule. Axillae: No enlarged lymph nodes. Chest Wall: Unremarkable. Bones: Unremarkable. Lungs and Pleura: No pneumothorax or pleural effusions. There is bronchiectasis with bronchial wall thickening, interstitial thickening, ground-glass PAS, and a few small areas of consolidation within the left lower lobe. Bronchiectasis and some of the ground-glass opacity is unchanged, however the consolidations are new and the interstitial thickening is more prominent. Heart: Heart size is normal. No pericardial effusion. Thoracic Vessels: No aortic aneurysm. Mediastinum and Fannie: No enlarged lymph nodes. Esophagus: No wall thickening. No hiatal hernia. Upper Abdomen: Visualized upper abdomen solid organs and bowel loops appear normal. IMPRESSION: No pulmonary embolus. Left lower lobe findings consistent with infection superimposed upon chronic bronchiectasis. Dictated by: Janel Ocasio M.D. on 01/22/2024 at 16:15 Approved by: Janel Ocasio M.D. on 01/22/2024 at 16:23
[2024-01-22] MEDS: methylPREDNISolone 125 MG/2 ML VIAL IV (17:56)
[2024-01-22] MEDS: cefTRIAXone 2,000 MG in SODIUM CHLORIDE 0.9% 100 ML 200 MG IV (17:57)
[2024-01-22] MEDS: ALBUTEROL 2.5 MG/3 ML NEB (ADULT) 10 MG INH (17:59)
[2024-01-22 18:04] LABS: Troponin I 0.195 ng/mL (0.01-0.034)
--- NOTE | 2024-01-22 18:27 | P.HP_ITS ---
History of Present Illness History of Present Illness Date Patient Seen: 01/22/24 Time Patient Seen: 18:28 Chief complaint: heart sx, SOB, getting worse Narrative: This is an 78-year-old male with atrial fibrillation, bronchiectasis, COPD, hyperlipidemia, hypertension and a recent AFib ablation who presents with 2 days of right sided pleuritic chest pain and mild dyspnea. He underwent catheter ablation in [place] [address] scan he has a small infiltrate at the right base consistent with aspiration pneumonia. He also is wheezing heavily consistent with COPD. His O2 saturation was 89% in the ED on room air. His troponin is trending downward from 0.22 down to 0.195 related to the recent ablation. This was discussed with cardiology. His EKG shows no acute ST or T- wave changes. He is being admitted for continuation of his cardiac medications, aspiration pneumonia treatment and COPD steroid therapy. [facility] Medical History (Updated 01/22/24 @ 17:56 by Matilde Rivera DO) Bronchiectasis Atrial fibrillation Chronic bronchitis Esophageal stenosis Dysphagia Right shoulder pain History of nicotine dependence Difficulty swallowing solids Hyperlipidemia Hypertension Surgical History (Updated 01/22/24 @ 18:47 by Su Stout MD) Status post catheter ablation of atrial fibrillation History of removal of cyst History of cataract removal with insertion of prosthetic lens Family History Unknown Cancer Father Hypertension Heart disease Cancer Social History household members: spouse Smoking Status: Former smoker Meds Home Medications and Allergies Home Medications Medication Instructions Recorded Confirmed Type fexofenadine-pseudoephedrine ER 1 tab PO QDAY ##0 07/05/12 09/10/23 History 180 mg-240 mg tablet,ext.release 24 hr (Bertha-D 24 Hour) apixaban 5 mg tablet (Eliquis) 5 mg PO BID #60 tabs 08/06/23 09/10/23 Rx metoprolol succinate 25 mg 25 mg PO DAILY #90 tabs 09/01/23 09/10/23 Rx tablet,extended release 24 hr PEP device #1 ea 09/10/23 01/22/24 Rx albuterol sulfate 2.5 mg/0.5 mL 2.5 mg (0.5 mL) inhalation TID #30 09/10/23 09/10/23 Rx solution for nebulization ea fluuter valve #1 ea 09/10/23 01/22/24 Rx nebulizer #1 ea 09/10/23 01/22/24 Rx amoxicillin 500 mg-potassium 1 tab PO BID #20 tabs 09/14/23 Rx clavulanate 125 mg tablet (Augmentin) losartan 25 mg tablet 25 mg PO DAILY #90 tabs 12/27/23 Rx Allergies Allergy/AdvReac Type Severity Reaction Status Date / Time No Known Drug Allergies Allergy Verified 01/22/24 15:16 Review of Systems Review of Systems Narrative: Positive for dyspnea and right-sided chest pain with deep breaths. Negative for fevers, chills, sweating, fevers, nausea, vomiting, abdominal pain, diarrhea, bleeding, rashes, joint pain, seizures, sore throat and new allergies. Exam Vital Signs (past 8 hours): - 01/22/24 15:16 01/22/24 15:39 01/22/24 15:39 Temperature 97 F L Pulse Rate 80 85 Respiratory Rate 18 25 H Blood Pressure 180/84 H 181/87 H Pulse Oximetry 96 97 Oxygen Delivery Method Room Air 01/22/24 16:00 01/22/24 16:00 01/22/24 16:03 Temperature Pulse Rate 84 Respiratory Rate 20 Blood Pressure 167/85 H Pulse Oximetry 95 95 Oxygen Delivery Method Room Air 01/22/24 16:30 01/22/24 16:30 01/22/24 16:56 Temperature Pulse Rate 82 86 Respiratory Rate 18 Blood Pressure 160/76 H Pulse Oximetry 94 95 Oxygen Delivery Method Room Air 01/22/24 17:59 Temperature Pulse Rate 88 Respiratory Rate 20 Blood Pressure Pulse Oximetry 90 L Oxygen Delivery Method Room Air Oxygen Delivery Method Room Air Narrative Exam Narrative: He is alert and oriented x3. Mild distress from chest pain and dyspnea. Pupils are equally round and reactive to light and accommodation. Extraocular muscles are intact. Sclerae are pink and nonicteric. Throat looks normal. No lymph nodes are felt head, neck, supraclavicular area. There is no thyromegaly. JVD is less than 6 cm. There is no carotid bruits heard. Heart is regular rate and rhythm without murmur Lungs are clear to auscultation bilaterally Abdomen is soft, bowel sounds positive, nontender, no organomegaly. Extremities have no ankle edema Skin has no rash or jaundice. The bilateral groin insertion sites are healing well without signs of significant hematoma, bleeding or infection. Neurological exam is normal. There is no increased reflexes. There is no tremor. Motor function is 4/5 throughout. Cranial nerves 2-[address] Objective Imaging [address] scan - chest: Radiologist's impression: IMPRESSION: No pulmonary embolus. Left lower lobe findings consistent with infection superimposed upon chronic bronchiectasis. Labs 01/22/24 15:38 01/22/24 15:38 Labs: Laboratory Results - last 24 hr 01/22/24 01/22/24 15:38 17:32 WBC 11.2 H RBC 4.29 L Hgb 12.8 L Hct 39.4 L MCV 91.7 MCH 29.9 MCHC 32.6 RDW 14.7 Plt Count 216 Neut % (Auto) 78.2 H Lymph % (Auto) 8.2 L [place] % (Auto) 12.0 Eos % (Auto) 1.1 L Baso % (Auto) 0.5 Neut # (Auto) 8800 H Lymph # (Auto) 900 L [place] # (Auto) 1300 H Eos # (Auto) 100 Baso # (Auto) 100 PT 16.1 H INR 1.4 H APTT 34 Sodium 136 L Potassium 5.1 Chloride 103 Carbon Dioxide 25 BUN 29 H Creatinine 1.55 H Estimated GFR 45 L BUN/Creatinine Ratio 18.7 Glucose 125 H Calcium 8.8 Magnesium 2.4 H Total Bilirubin 1.1 AST 44 ALT 27 Alkaline Phosphatase 73 Total Creatine Kinase 164 Troponin I 0.229 H* 0.195 H* NT-Pro-B Natriuret Pep 1900 H Total Protein 8.0 Albumin 4.4 Globulin 3.6 Albumin/Globulin Ratio 1.2 Lipase 58 Assessment & Plan Assessment & Plan narrative: This is an 78-year-old male with a history of bronchiectasis/COPD who presents 2 days status post catheter ablation with signs of COPD exacerbation and aspiration pneumonia. Right lower lobe pneumonia -not well seen on chest x-ray but confirmed on CT scan. -likely aspiration related to sedation for recent procedure. -received azithromycin and ceftriaxone in the ED. -begin Zosyn IV -apply oxygen as needed. Bronchiectasis/COPD exacerbation -treat pneumonia -oxygen as needed to keep sats above 90%. -Solu-Medrol 60 mg q.8 hours. Atrial fibrillation -continue sotalol 80 mg b.i.d. -continue apixaban, which was recently increased from 2.5 up to 5 mg b.i.d. by Cardiology post catheter ablation. -follow-up with cardiology planned. Hypertension -continue losartan. Continue sotalol. No longer on metoprolol. Hyperlipidemia -no current treatment. DVT prevention with apixaban His is his backup decision maker. Time-Based Coding :: [TOTAL MINUTES] spent with patient and on the chart (including review of chart, obtaining history, exam, reviewing outside data, placing orders, documenting exam and treatment plan, and counseling patient) on [DATE].
[2024-01-22] MEDS: PIPERACILLIN/TAZO 4.5 GM in SODIUM CHLORIDE 0.9% 100 ML IV (20:31)
[2024-01-23] VITALS (11 sets, daily range): BP systolic 99–121; BP diastolic 53–74; PULSE 71–104; RESP 15–20; TEMP 35.8–36.5; O2SAT 94–98
[2024-01-23] MEDS: PIPERACILLIN/TAZO 3.375 GM in SODIUM CHLORIDE 0.9% 100 ML IV ×4 (00:26→23:16)
[2024-01-23] MEDS: methylPREDNISolone 125 MG/2 ML VIAL 60 MG IV ×3 (01:57→17:46)
--- NOTE | 2024-01-23 03:01 | PC.NURSE ---
Admit/NOC Shift Note- Patient arrived to room via stretcher from ER at 1900. Patient alert and oriented and able to make needs known to staff. admit questions done, medications reviewed, and physical assesment completed. Patient oriented to bed and bed controls, room, bathroom, lights, menu, phone, and call luther/tv remote. Patient agrees to call for assistance. Call luther and phone within reach. Bed alarm activated. Will continue to monitor.
--- NOTE | 2024-01-23 03:18 | PC.NURSE ---
Assumed care of patient at 0314.
[2024-01-23 05:12] LABS: Add Manual Diff / Slide Review NO; Basophils Absolute Auto 0 /uL (0-100); Basophils Percent Auto 0.2 % (0-2); Eosinophils Absolute Auto 0 /uL (0-450); Hematocrit 36.6 % (41-53); Hemoglobin 12.1 g/dL (13.5-17.5); Lymphocytes Absolute Auto 300 /uL (1100-4500); Lymphocytes Percent Auto 2.3 % (25-40); Mean Corpuscular Volume 90.9 fL (80-100); Monocytes Absolute Auto 300 /uL (0-900); Monocytes Percent Auto 2.3 % (3-14); Neutrophils Absolute Auto 11100 /uL (1500-7000); Neutrophils Percent Auto 95.2 % (50-75); Platelet Count 169 X10^3/uL (150-400); Red Blood Cell Count 4.03 X10^6/uL (4.5-5.9); Red Cell Distribution Width 14.7 % (11.6-14.8); White Blood Cell Count 11.6 X10^3/uL (4.5-11.0)
--- NOTE | 2024-01-23 07:59 | PM.PN.1 ---
Subjective Subjective Date Patient Seen: 01/23/24 Interval history: He is seen in his room today. The white blood count is 11.6 with a hemoglobin of 4.1. The creatinine is 1.55. The potassium is 5.1. He says that he is feeling better. His is at bedside and her questions are answered. Exam Vital Signs (past 8 hours): - 01/23/24 00:26 01/23/24 04:00 01/23/24 05:51 Temperature 97.6 F 97.7 F Pulse Rate 72 71 Respiratory Rate 17 15 Blood Pressure 118/61 121/60 Pulse Oximetry 95 98 98 Oxygen Delivery Method Nasal Cannula Oxygen Flow Rate 2 Fraction of Inspired Oxygen 28 Fraction of Inspired Oxygen 28 SaO2/FiO2 Ratio 350 Oxygen Delivery Method Nasal Cannula Oxygen Flow Rate 2 Narrative Exam Narrative: Alert and oriented x3. No apparent distress. Heart is regular rate and rhythm without murmur Lungs clear to auscultation bilaterally Extremities have no ankle edema Objective Labs 01/23/24 04:32 01/22/24 15:38 Labs: Laboratory Results - last 24 hr 01/22/24 01/22/24 01/23/24 15:38 17:32 04:32 WBC 11.2 H 11.6 H RBC 4.29 L 4.03 L Hgb 12.8 L 12.1 L Hct 39.4 L 36.6 L MCV 91.7 90.9 MCH 29.9 30.0 MCHC 32.6 33.0 RDW 14.7 14.7 Plt Count 216 169 Neut % (Auto) 78.2 H 95.2 H Lymph % (Auto) 8.2 L 2.3 L [place] % (Auto) 12.0 2.3 L Eos % (Auto) 1.1 L 0.0 L Baso % (Auto) 0.5 0.2 Neut # (Auto) 8800 H 34688 H Lymph # (Auto) 900 L 300 L [place] # (Auto) 1300 H 300 Eos # (Auto) 100 0 Baso # (Auto) 100 0 PT 16.1 H INR 1.4 H APTT 34 Sodium 136 L Potassium 5.1 Chloride 103 Carbon Dioxide 25 BUN 29 H Creatinine 1.55 H Estimated GFR 45 L BUN/Creatinine Ratio 18.7 Glucose 125 H Calcium 8.8 Magnesium 2.4 H Total Bilirubin 1.1 AST 44 ALT 27 Alkaline Phosphatase 73 Total Creatine Kinase 164 Troponin I 0.229 H* 0.195 H* NT-Pro-B Natriuret Pep 1900 H Total Protein 8.0 Albumin 4.4 Globulin 3.6 Albumin/Globulin Ratio 1.2 Lipase 58 PFSH Medical History (Updated 01/22/24 @ 17:56 by Matilde Rivera DO) Bronchiectasis Atrial fibrillation Chronic bronchitis Esophageal stenosis Dysphagia Right shoulder pain History of nicotine dependence Difficulty swallowing solids Hyperlipidemia Hypertension Surgical History (Updated 01/22/24 @ 18:47 by Su Stout MD) Status post catheter ablation of atrial fibrillation History of removal of cyst History of cataract removal with insertion of prosthetic lens Family History Unknown Cancer Father Hypertension Heart disease Cancer Social History household members: spouse Smoking Status: Former smoker alcohol intake: never Assessment & Plan Assessment & Plan narrative: This is an 78-year-old male with a history of bronchiectasis/COPD who presented 2 days status post catheter ablation with signs of COPD exacerbation and aspiration pneumonia. Right lower lobe pneumonia -not well seen on chest x-ray but confirmed on CT scan. -likely aspiration related to sedation for recent procedure. -received azithromycin and ceftriaxone in the ED. -Now on Zosyn IV -apply oxygen as needed. -Expect will be able to go home on Tuesday 01/23. Bronchiectasis/COPD exacerbation -treat pneumonia -oxygen as needed to keep sats above 90%. -Solu-Medrol 60 mg q.8 hours. Atrial fibrillation -continue sotalol 80 mg b.i.d. -continue apixaban, which was recently increased from 2.5 up to 5 mg b.i.d. by Cardiology post catheter ablation. -follow-up with cardiology planned. Hypertension -continue losartan. Continue sotalol. No longer on metoprolol. Hyperlipidemia -no current treatment. Disposition: Home on 01/23 to complete 7-10 days of antibiotic treatment. DVT prevention with apixaban His is his backup decision maker. Time-Based Coding :: [TOTAL MINUTES] spent with patient and on the chart (including review of chart, obtaining history, exam, reviewing outside data, placing orders, documenting exam and treatment plan, and counseling patient) on [DATE].
[2024-01-23] MEDS: LOSARTAN 25 MG TABLET PO (08:17)
[2024-01-23] MEDS: APIXABAN 5 MG TABLET PO ×2 (08:17→20:28)
[2024-01-23] MEDS: SOTALOL 80 MG TABLET PO ×2 (08:25→20:28)
[2024-01-23] MEDS: ALBUTEROL 2.5 MG/3 ML NEB (ADULT) INH ×3 (09:04→19:57)
[2024-01-24] VITALS (8 sets, daily range): BP systolic 98–129; BP diastolic 60–77; PULSE 66–118; RESP 16–20; TEMP 35.9–36.4; O2SAT 94–97
[2024-01-24] MEDS: methylPREDNISolone 125 MG/2 ML VIAL 60 MG IV ×2 (01:04→09:20)
[2024-01-24] MEDS: PIPERACILLIN/TAZO 3.375 GM in SODIUM CHLORIDE 0.9% 100 ML IV ×2 (08:34→16:22)
[2024-01-24] MEDS: SOTALOL 80 MG TABLET PO ×2 (08:34→20:17)
[2024-01-24] MEDS: APIXABAN 5 MG TABLET PO ×2 (08:34→20:17)
[2024-01-24] MEDS: ALBUTEROL 2.5 MG/3 ML NEB (ADULT) INH (08:51)
--- NOTE | 2024-01-24 12:10 | EKG_ITS ---
[place] [id number] [place] [id number] Test Date: 2024-01-24 Pat Name: Eren Walters Department: [facility] Room: 217 Gender: Male Cloth Classer: NANCY : 1945 Requested By: Order Number: [id number] Reading MD: Yonatan Mehta Measurements Intervals [place] Rate: 87 P: [place]: QRS: 47 QRSD: 132 T: 13 QT: 422 QTc: 507 Interpretive Statements Atrial fibrillation with a competing junctional pacemaker Right bundle branch block Electronically Signed On 01-25-2024 19:42:35 PST by Yonatan Mehta
--- NOTE | 2024-01-24 15:09 | CM.DPC ---
DCP COnt: Per MD, pt seems to have improved with the abx for pneumonia but developed some RVR this morning and medications adjusted and if pt's HR stable this afternoon then can likely discharge home this evening with outpt f/u. No further identified barriers to discharge. BLADE Chavez
--- NOTE | 2024-01-24 17:05 | P.PN_ITS ---
Subjective Subjective Interval history: 78 M admitted with pneumonia after ablation. Back in afib with RVR this morning. Improved after resumption of home sotalol this afternoon. Exam Vital Signs (past 8 hours): - 01/24/24 10:19 01/24/24 12:00 01/24/24 16:00 Temperature 96.7 F L 96.8 F L Pulse Rate 66 82 Respiratory Rate 16 16 Blood Pressure 98/71 119/65 129/77 Pulse Oximetry 96 95 Oxygen Flow Rate 0 Fraction of Inspired Oxygen 28 SaO2/FiO2 Ratio 346 Oxygen Delivery Method Room Air Oxygen Flow Rate 0 Narrative Exam Narrative: Alert and oriented x3. No apparent distress. Heart is regular rate and rhythm without murmur Lungs clear to auscultation bilaterally Extremities have no ankle edema Objective Labs 01/23/24 04:32 01/22/24 15:38 [facility] Medical History (Updated 01/22/24 @ 17:56 by Matilde Rivera DO) Bronchiectasis Atrial fibrillation Chronic bronchitis Esophageal stenosis Dysphagia Right shoulder pain History of nicotine dependence Difficulty swallowing solids Hyperlipidemia Hypertension Surgical History (Updated 01/22/24 @ 18:47 by Su Stout MD) Status post catheter ablation of atrial fibrillation History of removal of cyst History of cataract removal with insertion of prosthetic lens Family History Unknown Cancer Father Hypertension Heart disease Cancer Social History household members: spouse Smoking Status: Former smoker alcohol intake: never Assessment & Plan Assessment & Plan narrative: This is an 78-year-old male with a history of bronchiectasis/COPD who presented 2 days status post catheter ablation with signs of COPD exacerbation and aspiration pneumonia. Right lower lobe pneumonia with acute respiratory failure with hypoxia -not well seen on chest x-ray but confirmed on CT scan. -likely aspiration related to sedation for recent procedure. -received azithromycin and ceftriaxone in the ED. -Now on Zosyn IV will continue today -apply oxygen as needed goal O2 90-96%. Bronchiectasis/COPD exacerbation -treat pneumonia -oxygen as needed to keep sats above 90%. -Solu-Medrol 60 mg q.8 hours, change to prednisone 40 mg daily. Atrial fibrillation with RVR -continue sotalol 80 mg b.i.d. -continue apixaban, which was recently increased from 2.5 up to 5 mg b.i.d. by Cardiology post catheter ablation. -follow-up with cardiology planned. -EKG with prolonged Qtc at 507, subsurface augmentee elint operator recommended metoprolol small dose if RVR is recurrent. Hypertension -continue losartan. Continue sotalol. Consider metoprolol if more RVR as above. Hyperlipidemia -no current treatment. Disposition: Probable discharge home tomorrow given RVR devlopment today. DVT prevention with apixaban His is his backup decision maker. Discussed with bedside RN, subsurface augmentee elint operator as noted above to contribute to the above assessment and plan. Time-Based Coding :: [TOTAL MINUTES] spent with patient and on the chart (including review of chart, obtaining history, exam, reviewing outside data, placing orders, documenting exam and treatment plan, and counseling patient) on [DATE].
[2024-01-25] VITALS: BP 113/68; PULSE 91; RESP 16; TEMP 36.1; O2SAT 93
[2024-01-25] MEDS: PIPERACILLIN/TAZO 3.375 GM in SODIUM CHLORIDE 0.9% 100 ML IV (00:14)
[2024-01-25 04:00] VITALS: BP 114/60; PULSE 83; RESP 20; TEMP 36.4; O2SAT 95
[2024-01-25 08:00] VITALS: BP 125/82; PULSE 83; RESP 18; TEMP 36.1; O2SAT 95
[2024-01-25 08:43] VITALS: BP 125/82
[2024-01-25] MEDS: APIXABAN 5 MG TABLET PO (08:43)
[2024-01-25] MEDS: predniSONE 20 MG TABLET 40 MG PO (08:43)
[2024-01-25] MEDS: LOSARTAN 25 MG TABLET PO (08:43)
[2024-01-25] MEDS: SOTALOL 80 MG TABLET PO (08:44)
--- NOTE | 2024-01-25 08:48 | P.DS_ITS ---
History of Present Illness History of Present Illness Date Patient Seen: 01/25/24 Time Patient Seen: 08:48 Chief complaint: heart sx, SOB, getting worse Narrative: Per admitting provider, This is an 78-year-old male with atrial fibrillation, bronchiectasis, COPD, hyperlipidemia, hypertension and a recent AFib ablation who presents with 2 days of right sided pleuritic chest pain and mild dyspnea. He underwent catheter ablation in [place] [address] scan he has a small infiltrate at the right base consistent with aspiration pneumonia. He also is wheezing heavily consistent with COPD. His O2 saturation was 89% in the ED on room air. His troponin is trending downward from 0.22 down to 0.195 related to the recent ablation. This was discussed with cardiology. His EKG shows no acute ST or T- wave changes. He is being admitted for continuation of his cardiac medications, aspiration pneumonia treatment and COPD steroid therapy. Discharge Providers Provider Date of admission: 01/22/24 18:23 Discharge Date: 01/25/24 Primary care physician: Mello Coffey MD Discharge provider: Yonatan Mehta DO Summary Hospital Course Discharge Diagnosis: Acute respiratory failure with hypoxia secondary to RLL aspiration pneumonia due to recent cardiac ablation procedure. Bronchiectasis/COPD exacerbation Atrial fibrillation with RVR Hypertension Hospital Course: This is an 78 year old male with PMH of atrial fibrillation s/p recent ablation who was admitted with acute respiratory failure with hypoxia. CT scan showed a RLL PNA consistent with possible aspiration due to his recent ablation procedure. He was started on zosyn, but with underlying bronchiectasis patient was additionally started on steroids for possible flare. He was able to be weaned from supplemental oxygen quite quickly, the following morning, however he did have atrial fibrillation with RVR on his monitor with minimal activity. Case was discussed with manager pulmonary air defense artillery senior sergeant, unfortunately home sotalol could not be increased due to a prolonged Qtc. However his rate subsequently improved without additional measures and was likely in part due to his acute pulmonary process. He remained rate controlled the following day and felt much improved, and was discharged home. He will complete another 5 days of antibiotics with augmentin and 3 days of prednisone. Recommend continued follow up with cardiology as previously scheduled. No other changes to home medications were recommended at the time of discharge. Time Spent with Patient Time spent: Greater than 30 minutes Exam Vital Signs (past 8 hours): - 01/25/24 04:00 01/25/24 08:00 01/25/24 08:43 Temperature 97.5 F L 97.0 F L Pulse Rate 83 83 Respiratory Rate 20 18 Blood Pressure 114/60 125/82 125/82 Pulse Oximetry 95 95 Oxygen Flow Rate 0 0 Fraction of Inspired Oxygen 28 SaO2/FiO2 Ratio 346 Oxygen Delivery Method Room Air Oxygen Flow Rate 0 Narrative Exam Narrative: Alert and oriented x3. No apparent distress. Heart is regular rate and rhythm without murmur Lungs clear to auscultation bilaterally Extremities have no ankle edema Objective Labs 01/23/24 04:32 01/22/24 15:38 [facility] Medical History (Updated 01/22/24 @ 17:56 by Matilde Rivera DO) Bronchiectasis Atrial fibrillation Chronic bronchitis Esophageal stenosis Dysphagia Right shoulder pain History of nicotine dependence Difficulty swallowing solids Hyperlipidemia Hypertension Surgical History (Updated 01/22/24 @ 18:47 by Su Stout MD) Status post catheter ablation of atrial fibrillation History of removal of cyst History of cataract removal with insertion of prosthetic lens Family History Unknown Cancer Father Hypertension Heart disease Cancer Social History household members: spouse Smoking Status: Former smoker alcohol intake: never Discharge Plan Discharge Plan Patient Disposition: Home Provider Discharge Comment: You were admitted to the hospital with a pneumonia, then had brief time of a fast heart rate. All improved now. Complete course of antibiotics and a shorter course of prednisone at home, no changes otherwise to your home medications. Discharge orders & Medications Prescriptions: New prednisone 20 mg tablet 20 mg PO DAILY 3 Days Qty: 3 0RF amoxicillin-pot clavulanate 875-125 mg tablet 1 tab PO BID 5 Days Qty: 10 0RF Continued Eliquis 5 mg tablet 5 mg PO BID Qty: 60 6RF losartan 25 mg tablet 25 mg PO DAILY Qty: 90 1RF sotalol 80 mg tablet 80 mg PO BID fexofenadine 180 mg Tablet 180 mg PO DAILY colchicine 0.6 mg tablet 0.6 mg PO DAILY (DME) nebulizer See Rx Instructions .Route .MEDSUPPLY Qty: 1 0RF Rx Instructions: Nebulizer to use as directed. (DME) fluuter valve See Rx Instructions .Route .MEDSUPPLY Qty: 1 0RF Rx Instructions: As directed (DME) PEP device See Rx Instructions .Route .MEDSUPPLY Qty: 1 0RF Rx Instructions: Positive expiratory pressure device Follow up/Referrals: Mello Coffey MD [Primary Care Provider] - Diet/Activity/Treatments Diet: Diet as Tolerated and Regular Activity: As tolerated Visit Report/Discharge Packet Stand Alone Forms: Patient Portal/API, Stroke Signs & Symptoms Discharge Data Primary Care Provider: Mello Coffey
--- NOTE | 2024-01-25 09:56 | PC.NURSE ---
Discharge Note Patient A&O, VSS, RA, no complaints of pain/discomfort. Discharge packet reviewed with patient, all questions/concerns addressed. PIV discontinued. Patient able to dress self and pack all belongings. Patient taken down via wheelchair to POV.
== END 2024-01-25 09:30 | disposition home or self-care (01) | DRG 205 ==
LOC: ED 18:22 → AC 01-23 08:21
PROVIDERS: Admitting Provider Family Medicine; Emergency Provider Emergency Medicine; PCP Family Medicine; Referring Provider Emergency Medicine; Visit Provider Family Medicine
DX: J95.4 Chemical pneumonitis due to anesthesia (principal); J96.01 Acute respiratory failure with hypoxia; J44.1 Chronic obstructive pulmonary disease with (acute) exacerbation; J47.1 Bronchiectasis with (acute) exacerbation; I48.91 Unspecified atrial fibrillation; I10 Essential (primary) hypertension; T41.0X5A Adverse effect of inhaled anesthetics, initial encounter; Y84.8 Other medical procedures as the cause of abnormal reaction of the patient, or of later complication, without mention of misadventure at the time of the procedure; Z79.01 Long term (current) use of anticoagulants; Z87.891 Personal history of nicotine dependence
CPT/HCPCS: 36415; 71045; 71275; 80053; 82550; 83690; 83735; 83880; 84484; 85025; 85610; 85730; 93005; 93010; 94640; 94667; 96365; 96375; 96376; 99284; 99285; J0696; J2270; J2405; J2543; J2919; J7613; Q9967

== ENCOUNTER → 2024-02-23 12:05 | Outpatient (CLI) | payer MEDICARE, OTHER, SELFPAY ==
[2024-01-22 19:57] VITALS: BMI 27.3
[2024-02-23 12:52] LABS: Hematocrit 38.7 % (41-53); Hemoglobin 12.5 g/dL (13.5-17.5)
[2024-02-23 12:59] LABS: BUN Creatinine Ratio 19.1 (6-22); Blood Urea Nitrogen 22 mg/dL (9-20); Calcium 9.2 mg/dL (8.4-10.2); Carbon Dioxide 31 mmol/L (22-32); Chloride 107 mmol/L (98-107); Estimated Glomerular Filt Rate > 60 mL/min (>60); Glucose 146 mg/dL (80-110); HEMOLYSIS 27 (0-50); Phosphorous 2.6 mg/dL (2.3-3.7); Potassium 4.4 mmol/L (3.4-5.1); Sodium 141 mmol/L (137-145)
[2024-02-23 15:47] LABS: Creatinine Urine Random 120.83 mg/dL; Protein (Total) Urine Random 59 mg/dL (0-12); Protein Creatinine Ratio Urine 0.48 GRAM/24H
== END ==
LOC: LAB 12:07
PROVIDERS: PCP Family Medicine; Referring Provider Student in an Organized Health Care Education/Training Program; Visit Provider Student in an Organized Health Care Education/Training Program
DX: N05.9 Unspecified nephritic syndrome with unspecified morphologic changes (principal); R80.9 Proteinuria, unspecified; D70.9 Neutropenia, unspecified; N25.81 Secondary hyperparathyroidism of renal origin; E83.30 Disorder of phosphorus metabolism, unspecified; D63.1 Anemia in chronic kidney disease
CPT/HCPCS: 36415; 80048; 82570; 83970; 84100; 84156; 85014; 85018

== ENCOUNTER → 2024-03-10 13:13 | Outpatient (CLI) | payer MEDICARE, OTHER, SELFPAY ==
[2024-01-22 19:57] VITALS: BMI 27.3
--- NOTE | 2024-03-10 13:15 | DI.RAD.S_ITS ---
PROCEDURE: XR CHEST 2V INDICATIONS: pneumonia follow up TECHNIQUE: 2 views of the chest were acquired. COMPARISON: [facility], CR, XR CHEST 1V, 01/22/2024, 15:24. FINDINGS: Surgical changes and devices: None. Lungs and pleura: Lungs are clear. No pleural effusions or pneumothorax. Mediastinum: Mediastinal contours are normal. Heart size is enlarged, stable. Bones and chest wall: No suspicious bony abnormalities. Soft tissues appear unremarkable. IMPRESSION: Resolution of left basilar/retrocardiac opacity. No acute cardiopulmonary abnormality is seen. Dictated by: Parveen Isaacs M.D. on 03/10/2024 at 21:58 Approved by: Parveen Isaacs M.D. on 03/10/2024 at 21:58
== END ==
PROVIDERS: PCP Family Medicine; Referring Provider Family Medicine; Visit Provider Family Medicine
DX: J18.9 Pneumonia, unspecified organism (principal); J06.9 Acute upper respiratory infection, unspecified; Z98.890 Other specified postprocedural states; I48.91 Unspecified atrial fibrillation; J47.9 Bronchiectasis, uncomplicated
CPT/HCPCS: 71046

== ENCOUNTER → 2024-03-17 14:43 | Outpatient (CLI) | payer MEDICARE, OTHER, SELFPAY ==
[2024-01-22 19:57] VITALS: BMI 27.3
--- NOTE | 2024-03-17 14:44 | DI.US.S_ITS ---
PROCEDURE: US RENAL COMPLETE INDICATIONS: CKD TECHNIQUE: Real-time scanning was performed of the kidneys and bladder, with image documentation. COMPARISON: None. FINDINGS: Kidneys: Kidneys are normal in size. Right kidney measures 12.4 cm long; left kidney measures 12.1 cm long. Right renal cortical thickness is 1.6 cm; left renal cortical thickness is 1.6 cm. Renal cortical echotexture is normal. No hydronephrosis or nephrolithiasis. No suspicious solid mass lesions. 1.4 cm simple cyst noted in the left. Bladder: Not distended Miscellaneous: No free pelvic fluid. IMPRESSION: Unremarkable. No hydronephrosis Approved by: Selvin Craig M.D. on 03/17/2024 at 18:04
== END ==
PROVIDERS: PCP Family Medicine; Referring Provider Student in an Organized Health Care Education/Training Program; Visit Provider Student in an Organized Health Care Education/Training Program
DX: N18.2 Chronic kidney disease, stage 2 (mild) (principal); N28.1 Cyst of kidney, acquired
CPT/HCPCS: 76770

== ENCOUNTER 2024-03-21 15:41 | Emergency (ER) | payer MEDICARE, OTHER, SELFPAY ==
[2024-01-22 19:57] VITALS: BMI 27.3
[2024-03-21 15:55] VITALS: BP 165/81; PULSE 98; RESP 16; TEMP 36.6; O2SAT 98; BMI 27.3
--- NOTE | 2024-03-21 15:59 | DI.RAD.S_ITS ---
PROCEDURE: XR CHEST 1V INDICATIONS: chest pain TECHNIQUE: One view of the chest was acquired. COMPARISON: [facility], CR, XR CHEST 2V, 03/10/2024, 13:12. [facility], CR, XR CHEST 1V, 01/22/2024, 15:24. FINDINGS: Surgical changes and devices: None. Lungs and pleura: Lungs are clear. No pleural effusions or pneumothorax. Mediastinum: Mediastinal contours appear normal. Heart size is enlarged, stable. Bones and chest wall: No suspicious bony lesions. Overlying soft tissues appear unremarkable. IMPRESSION: No acute cardiopulmonary abnormality is seen. Dictated by: Parveen Isaacs M.D. on 03/21/2024 at 16:32 Approved by: Parveen Isaacs M.D. on 03/21/2024 at 16:33
--- NOTE | 2024-03-21 16:08 | EKG_ITS ---
[place] [address] [address] [address] Test Date: 2024-03-21 Pat Name: Eren Walters Department: [facility] Room: Gender: Male District Administrative Assistant: YAS : 1945 Requested By: Order Number: [id number] Reading MD: Yariel Zuluaga MD Measurements Intervals [place] Rate: 91 P: [place]: QRS: 59 QRSD: 132 T: -38 QT: 396 QTc: 487 Interpretive Statements Atrial fibrillation Right bundle branch block NO SIGNIFICANT CHANGE FROM PRIOR TRACING Electronically Signed On 03-21-2024 16:22:49 PST by Yariel Zuluaga MD
[2024-03-21 16:19] LABS: Add Manual Diff / Slide Review NO; Basophils Absolute Auto 0 /uL (0-100); Basophils Percent Auto 0.9 % (0-2); Eosinophils Absolute Auto 200 /uL (0-450); Eosinophils Percent Auto 3.5 % (2-4); Hematocrit 39.4 % (41-53); Hemoglobin 12.6 g/dL (13.5-17.5); Lymphocytes Absolute Auto 1100 /uL (1100-4500); Lymphocytes Percent Auto 20.7 % (25-40); Mean Corpuscular Hemoglobin 29.5 PG (26-34); Mean Corpuscular Volume 92.1 fL (80-100); Monocytes Absolute Auto 700 /uL (0-900); Monocytes Percent Auto 12.1 % (3-14); Neutrophils Absolute Auto 3500 /uL (1500-7000); Neutrophils Percent Auto 62.8 % (50-75); Platelet Count 180 X10^3/uL (150-400); Red Blood Cell Count 4.28 X10^6/uL (4.5-5.9); Red Cell Distribution Width 15.1 % (11.6-14.8); White Blood Cell Count 5.5 X10^3/uL (4.5-11.0)
[2024-03-21 16:20] LABS: INR 1.4 (0.9-1.3)
[2024-03-21 16:23] LABS: PTT Partial Thromboplastin Tim 34 SECONDS (25.1-36.5)
[2024-03-21 16:26] LABS: Alanine Aminotransferase 25 IU/L (<50); Albumin 4.3 g/dL (3.5-5.0); Albumin Globulin Ratio 1.3 (1.0-2.8); Alkaline Phosphatase 104 U/L (38-126); Aspartate Aminotransferase 37 IU/L (17-59); BUN Creatinine Ratio 19.4 (6-22); Bilirubin Total 0.6 mg/dL (0.2-1.3); Blood Urea Nitrogen 21 mg/dL (9-20); Calcium 9.1 mg/dL (8.4-10.2); Carbon Dioxide 30 mmol/L (22-32); Chloride 106 mmol/L (98-107); Creatine Kinase 52 U/L (55-170); Estimated Glomerular Filt Rate > 60 mL/min (>60); Globulin 3.2 g/dL (1.7-4.1); Glucose 107 mg/dL (80-110); HEMOLYSIS 26 (0-50); Lipase 128 U/L (23-300); Magnesium 1.9 mg/dL (1.6-2.3); Potassium 3.8 mmol/L (3.4-5.1); Sodium 140 mmol/L (137-145); Total Protein 7.5 g/dL (6.3-8.2)
[2024-03-21 16:38] LABS: NT-proBNP (BNP-Adult 18+) 3800 pg/mL (<450); Troponin I < 0.012 ng/mL (0.01-0.034)
[2024-03-21 18:07] LABS: Influenza A - CEPHEID Flu A NEGATIVE (NEGATIVE); Influenza B - CEPHEID Flu B NEGATIVE (NEGATIVE); Respiratory Syncytial Virus Negative (Negative)
[2024-03-21 18:10] LABS: COVID-19 CEPHEID 4-PLEX PCR Negative (Negative)
[2024-03-21 21:19] VITALS: BP 155/78; PULSE 93; TEMP 37; O2SAT 95
--- NOTE | 2024-03-21 23:32 | ED_ITS ---
HPI - URI/Sore Throat General Chief Complaint: Upper Respiratory Symptoms Stated Complaint: weakness, SOB couple weeks Time Seen by Provider: 03/21/24 23:27 History of Present Illness HPI Narrative: Patient is an 78-year-old history of atrial fibrillation bronchiectasis COPD hyperlipidemia hypertension presenting today with increasing shortness breath with exertion. Denies any sort of orthopnea lower extremity swelling. He does have chronic cough spitting up some clear phlegm which is not new. No fevers or chills. He denies any sort of chest pain or abdominal pain. Previously admitted in January with pneumonia. He reports he had a cardiac ablation for atrial fibrillation about 2 months ago after which he developed pneumonia Related Data Home Medications Medication Instructions Recorded Confirmed colchicine 0.6 mg tablet 0.6 mg PO DAILY 01/22/24 02/17/24 fexofenadine 180 mg tablet 180 mg PO DAILY 01/22/24 02/17/24 sotalol 80 mg tablet 80 mg PO BID 01/22/24 02/17/24 Previous Rx's Medication Instructions Recorded apixaban 5 mg tablet (Eliquis) 5 mg PO BID #60 tabs 08/06/23 PEP device #1 ea 09/10/23 fluuter valve #1 ea 09/10/23 nebulizer #1 ea 09/10/23 losartan 25 mg tablet 25 mg PO DAILY #90 tabs 12/27/23 furosemide 20 mg tablet (Lasix) 20 mg PO DAILY #4 tabs 03/22/24 Allergies Allergy/AdvReac Type Severity Reaction Status Date / Time No Known Drug Allergies Allergy Verified 02/17/24 10:21 Patient History Medical History Bronchiectasis Atrial fibrillation Chronic bronchitis Esophageal stenosis Dysphagia Right shoulder pain History of nicotine dependence Difficulty swallowing solids Hyperlipidemia Hypertension Surgical History Status post catheter ablation of atrial fibrillation History of removal of cyst History of cataract removal with insertion of prosthetic lens Family History Unknown Cancer Father Hypertension Heart disease Cancer Social History household members: spouse Smoking Status: Former smoker alcohol intake: never Smoking Status: Former smoker alcohol intake frequency: holidays/special occasions only Exam Initial Vital Signs Initial Vital Signs: Vital Signs Temperature 97.9 F 03/21/24 15:55 Pulse Rate 98 H 03/21/24 15:55 Respiratory Rate 16 03/21/24 15:55 Blood Pressure 165/81 H 03/21/24 15:55 Pulse Oximetry 98 03/21/24 15:55 Oxygen Delivery Method Room Air 03/21/24 15:55 GENERAL: Alert well-appearing 78-year-old male HEENT: Head atraumatic,EOMI, pupils reactive, face symmetric, moist mucous membranes CARDIOVASCULAR: Regular rate and rhythm without murmurs, rubs or gallops. RESPIRATORY: Mild crackles bilaterally no respiratory distress speaks in full sentences without issue no wheezing ABDOMEN: Soft, nontender. Normoactive bowel sounds all 4 quadrants. No guarding or rebound. EXTREMITIES: Normal range of motion, no clubbing or edema. Neurovascularly intact NEUROLOGICAL: Alert and oriented x4.Normal gait and speech. Cranial nerves II through XII grossly intact. SKIN: Warm, dry, no laceration, no petechiae, no rashes or lesions. Course Orders Ordered: Discontinued Medications Furosemide (Furosemide 40 Mg/4 Ml Vial) 20 mg IV NOW ONE Stop: 03/21/24 23:48 Last Admin: 03/22/24 00:00 Dose: 20 mg Documented By: ONEIL Vital Signs Vital signs: Vital Signs - 8 hr 03/21/24 21:19 03/21/24 23:33 Temperature 98.6 F Pulse Rate 93 H 93 H Respiratory Rate 20 Blood Pressure 155/78 H 196/97 H Pulse Oximetry 95 98 Oxygen Delivery Method Room Air Room Air MDM - URI/Sore Throat Lab Data 03/21/24 16:06 03/21/24 16:06 Labs: Lab Results 03/21/24 03/21/24 Range/Units 16:06 17:09 WBC 5.5 (4.5-11.0) X10^3/uL RBC 4.28 L (4.5-5.9) X10^6/uL Hgb 12.6 L (13.5-17.5) g/dL Hct 39.4 L (41-53) % MCV 92.1 (80-100) fL MCH 29.5 (26-34) PG MCHC 32.0 (30-36) % RDW 15.1 H (11.6-14.8) % Plt Count 180 (150-400) X10^3/uL Neut % (Auto) 62.8 (50-75) % Lymph % (Auto) 20.7 L (25-40) % [place] % (Auto) 12.1 (3-14) % Eos % (Auto) 3.5 (2-4) % Baso % (Auto) 0.9 (0-2) % Neut # (Auto) 3500 (7180-6282) /uL Lymph # (Auto) 1100 (2646-3310) /uL [place] # (Auto) 700 (0-900) /uL Eos # (Auto) 200 (0-450) /uL Baso # (Auto) 0 (0-100) /uL PT 16.0 H (9.4-12.5) SECONDS INR 1.4 H (0.9-1.3) APTT 34 (25.1-36.5) SECONDS Sodium 140 (137-145) mmol/L Potassium 3.8 (3.4-5.1) mmol/L Chloride 106 (98-107) mmol/L Carbon Dioxide 30 (22-32) mmol/L BUN 21 H (9-20) mg/dL Creatinine 1.08 (0.66-1.25) mg/dL Estimated GFR > 60 (>60) mL/min BUN/Creatinine Ratio 19.4 (6-22) Glucose 107 (80-110) mg/dL Calcium 9.1 (8.4-10.2) mg/dL Magnesium 1.9 (1.6-2.3) mg/dL Total Bilirubin 0.6 (0.2-1.3) mg/dL AST 37 (17-59) IU/L ALT 25 (<50) IU/L Alkaline Phosphatase 104 (38-126) U/L Total Creatine Kinase 52 L (55-170) U/L Troponin I < 0.012 (0.01-0.034) ng/mL NT-Pro-B Natriuret Pep 3800 H (<450) pg/mL Total Protein 7.5 (6.3-8.2) g/dL Albumin 4.3 (3.5-5.0) g/dL Globulin 3.2 (1.7-4.1) g/dL Albumin/Globulin Ratio 1.3 (1.0-2.8) Lipase 128 (23-300) U/L SARS-CoV-2 (PCR) Negative (Negative) Influenza A (RT-PCR) Flu a negative (NEGATIVE) Influenza B (RT-PCR) Flu b negative (NEGATIVE) RSV (PCR) Negative (Negative) Imaging Data Chest x-ray: Radiologist's Impression: PROCEDURE: XR CHEST 1V INDICATIONS: chest pain TECHNIQUE: One view of the chest was acquired. COMPARISON: [facility], CR, XR CHEST 2V, 03/10/2024, 13:12. [facility], CR, XR CHEST 1V, 01/22/2024, 15:24. FINDINGS: Surgical changes and devices: None. Lungs and pleura: Lungs are clear. No pleural effusions or pneumothorax. Mediastinum: Mediastinal contours appear normal. Heart size is enlarged, stable. Bones and chest wall: No suspicious bony lesions. Overlying soft tissues appear unremarkable. IMPRESSION: No acute cardiopulmonary abnormality is seen. Dictated by: Parveen Isaacs M.D. on 03/21/2024 at 16:32 ECG Data Attestation: I personally reviewed and interpreted this ECG as follows: Prior ECG tracings: available for review Interpretation: Atrial fibrillation rate 91 right bundle-branch block noted no EKGs changes similar to prior MDM Narrative Medical decision making narrative: MDM CC: Shortness of breath Complicating co-morbidities: Atrial fibrillation on Eliquis COPD Medical records reviewed: Previous admissions Differential considered: COPD exacerbation pneumonia CHF respiratory illness Exam documented above, pertinent findings include: Well-appearing 78-year-old male no significant respiratory distress Lab Test results independently reviewed as above. Pertinent findings: BNP 3800 previously 1900 Troponin negative CBC no leukocytosis anemia CMP no electrolyte abnormality no HAJA Independently reviewed EKG as above Atrial fibrillation rate controlled no ischemia Imaging studies independently reviewed: Chest x-ray no acute process Consultations: [ ] Treatments: Lasix Re-evaluations: [ ] Discussion: 78-year-old male history of atrial fibrillation presenting today with increasing shortness of breath. Mostly with exertion. He was found to have an elevated BNP. No evidence of pulmonary edema or pleural effusion on x- ray. He has minimal peripheral edema. No conversational dyspnea no hypoxia. Blood work is otherwise overall reassuring no leukocytosis or anemia troponin is negative. He was viral panel that is also negative. Does not seem to have any kind of wheezing or COPD like symptoms. He has not on any diuretic that I can see. He was given 20 mg of Lasix here in the ED. he had an echo 09/02/2023 which showed an EF of 55-60% and normal wall motion. Patient is treated for congestive heart failure with elevated BNP. Pulmonary embolism considered but unlikely patient was taking Eliquis and symptoms most consistent with congestive heart failure Discharge Plan Departure Patient Disposition: Home Clinical Impression: CHF (congestive heart failure) Instructions: DI for Heart Failure Activity Restrictions/Additional Instructions: *You have been diagnosed with congestive heart failure *What to do: At this time you do have a little bit of fluid on your lungs causing some shortness of breath. Give you medication to help you pee it off *Continue to take medications as directed Lasix 20 mg once a day for 3 days *Follow up with your primary care provider in 2-3 days or call [phone] Follow-up with your PCP and cardiology may need a repeat ultrasound of your heart *Return to ER if you should have increasing shortness of breath chest pain dizziness lightheadedness falling down [or] any new, worsening or concerning symptoms Prescriptions: New furosemide [Lasix] 20 mg tablet 20 mg PO DAILY Qty: 4 0RF No Action Eliquis 5 mg tablet 5 mg PO BID Qty: 60 6RF losartan 25 mg tablet 25 mg PO DAILY Qty: 90 1RF sotalol 80 mg tablet 80 mg PO BID fexofenadine 180 mg Tablet 180 mg PO DAILY colchicine 0.6 mg tablet 0.6 mg PO DAILY (DME) nebulizer See Rx Instructions .Route .MEDSUPPLY Qty: 1 0RF Rx Instructions: Nebulizer to use as directed. (DME) fluuter valve See Rx Instructions .Route .MEDSUPPLY Qty: 1 0RF Rx Instructions: As directed (DME) PEP device See Rx Instructions .Route .MEDSUPPLY Qty: 1 0RF Rx Instructions: Positive expiratory pressure device Referrals: Mello Coffey MD [Primary Care Provider] - Stand Alone Forms: Patient Portal/API/Survey
[2024-03-21 23:33] VITALS: BP 196/97; PULSE 93; RESP 20; O2SAT 98
[2024-03-22] MEDS: FUROSEMIDE 40 MG/4 ML VIAL 20 MG IV
== END 2024-03-22 00:14 | disposition home or self-care (01) ==
PROVIDERS: Emergency Medicine; Emergency Provider Emergency Medicine; PCP Family Medicine
DX: I50.9 Heart failure, unspecified (principal); R07.9 Chest pain, unspecified; Z86.79 Personal history of other diseases of the circulatory system; Z79.01 Long term (current) use of anticoagulants; I10 Essential (primary) hypertension; E78.5 Hyperlipidemia, unspecified
CPT/HCPCS: 0241U; 36415; 71045; 80053; 82550; 83690; 83735; 83880; 84484; 85025; 85610; 85730; 93005; 93010; 96374; 99284; J1940

== ENCOUNTER → 2024-08-28 08:34 | Outpatient (CLI) | payer MEDICARE, OTHER, SELFPAY ==
[2024-01-22 19:57] VITALS: BMI 27.3
[2024-08-28 09:30] LABS: Hematocrit 35.7 % (41-53); Hemoglobin 12.0 g/dL (13.5-17.5)
[2024-08-28 09:50] LABS: Blood Urea Nitrogen 29 mg/dL (9-20); Calcium 8.9 mg/dL (8.4-10.2); Carbon Dioxide 29 mmol/L (22-32); Chloride 104 mmol/L (98-107); Estimated Glomerular Filt Rate 43 mL/min (>60); Glucose 100 mg/dL (70-99); HEMOLYSIS < 15 (0-50); Potassium 4.3 mmol/L (3.4-5.1); Protein (Total) Urine Random 37 mg/dL (0-12); Protein Creatinine Ratio Urine 0.48 GRAM/24H; Sodium 141 mmol/L (137-145)
== END ==
PROVIDERS: PCP Family Medicine; Referring Provider Student in an Organized Health Care Education/Training Program; Visit Provider Student in an Organized Health Care Education/Training Program
DX: D70.9 Neutropenia, unspecified (principal); N05.9 Unspecified nephritic syndrome with unspecified morphologic changes; N25.81 Secondary hyperparathyroidism of renal origin; D63.1 Anemia in chronic kidney disease; R80.9 Proteinuria, unspecified
CPT/HCPCS: 36415; 80048; 82570; 83970; 84156; 85014; 85018

== ENCOUNTER → 2024-11-09 14:14 | Outpatient (CLI) | payer MEDICARE, OTHER, SELFPAY ==
[2024-01-22 19:57] VITALS: BMI 27.3
[2024-11-09 15:46] LABS: Blood Urea Nitrogen 20 mg/dL (9-20); Calcium 8.9 mg/dL (8.4-10.2); Carbon Dioxide 30 mmol/L (22-32); Chloride 99 mmol/L (98-107); Estimated Glomerular Filt Rate 43 mL/min (>60); Glucose 100 mg/dL (70-99); HEMOLYSIS < 15 (0-50); Potassium 4.6 mmol/L (3.4-5.1); Sodium 139 mmol/L (137-145)
[2024-11-09 15:47] LABS: Hematocrit 36.7 % (41-53); Hemoglobin 12.2 g/dL (13.5-17.5)
[2024-11-09 17:37] LABS: Protein (Total) Urine Random 60 mg/dL (0-12); Protein Creatinine Ratio Urine 0.69 GRAM/24H
== END ==
PROVIDERS: PCP Family Medicine; Referring Provider Student in an Organized Health Care Education/Training Program; Visit Provider Student in an Organized Health Care Education/Training Program
DX: N05.9 Unspecified nephritic syndrome with unspecified morphologic changes (principal); D63.1 Anemia in chronic kidney disease; D70.9 Neutropenia, unspecified; N25.81 Secondary hyperparathyroidism of renal origin; R80.9 Proteinuria, unspecified
CPT/HCPCS: 36415; 80048; 82570; 83970; 84156; 85014; 85018

== ENCOUNTER → 2024-11-20 10:11 | Outpatient (CLI) | payer MEDICARE, OTHER, SELFPAY ==
[2024-01-22 19:57] VITALS: BMI 27.3
--- NOTE | 2024-11-20 10:13 | DI.RAD.S_ITS ---
PROCEDURE: XR CHEST 2V INDICATIONS: hx COVID, hx PNA, SOB TECHNIQUE: 2 views of the chest were acquired. COMPARISON: [facility], CR, XR CHEST 2 VIEWS, 07/06/2024, 15:09. [facility], CR, XR CHEST 1V, 03/21/2024, 16:05. FINDINGS: Surgical changes and devices: Pacemaker. Lungs and pleura: Small areas of increased interstitial prominence. Mediastinum: Mediastinal contours are normal. Heart size is mildly prominent. Bones and chest wall: No suspicious bony abnormalities. Soft tissues appear unremarkable. IMPRESSION: Small areas of interstitial prominence particularly on the right. These could represent overlapping osseous/soft tissue shadows versus areas of infection/inflammation. Dictated by: Aurelia Jacob M.D. on 11/20/2024 at 15:06 Approved by: Aurelia Jacob M.D. on 11/20/2024 at 15:07
== END ==
PROVIDERS: PCP Family Medicine; Referring Provider Family Medicine; Visit Provider Family Medicine
DX: J47.0 Bronchiectasis with acute lower respiratory infection (principal); R06.02 Shortness of breath; R53.83 Other fatigue; Z86.16 Personal history of COVID-19; Z95.0 Presence of cardiac pacemaker
CPT/HCPCS: 71046

== ENCOUNTER → 2024-11-23 17:29 | Outpatient (CLI) | payer MEDICARE, OTHER, SELFPAY ==
[2024-01-22 19:57] VITALS: BMI 27.3
--- NOTE | 2024-11-23 17:30 | DI.RAD.S_ITS ---
PROCEDURE: XR CHEST 2V INDICATIONS: pain on deep breath, cough TECHNIQUE: 2 views of the chest were acquired. COMPARISON: [facility], CR, XR CHEST 2 VIEWS, 07/06/2024, 15:09. [facility], CR, XR CHEST 2V, 11/20/2024, 10:12. FINDINGS: Surgical changes and devices: Pacemaker. Lungs and pleura: Persistent appearance of interstitial prominence particularly on the right. Mediastinum: Mediastinal contours are normal. Heart size is enlarged. Bones and chest wall: No suspicious bony abnormalities. Soft tissues appear unremarkable. IMPRESSION: Stable interval exam with right upper lobe opacity suspicious for pneumonia. Dictated by: Aurelia Jacob M.D. on 11/23/2024 at 17:47 Approved by: Aurelia Jacob M.D. on 11/23/2024 at 17:48
== END ==
PROVIDERS: PCP Family Medicine; Referring Provider Family Medicine; Visit Provider Family Medicine
DX: R52 Pain, unspecified (principal); R05.9 Cough, unspecified; I51.7 Cardiomegaly; Z86.16 Personal history of COVID-19; Z95.0 Presence of cardiac pacemaker
CPT/HCPCS: 71046

== ENCOUNTER → 2024-12-18 15:51 | Outpatient (CLI) | payer MEDICARE, OTHER, SELFPAY ==
[2024-01-22 19:57] VITALS: BMI 27.3
[2024-12-18 16:34] LABS: Add Manual Diff / Slide Review NO; Hematocrit 37.4 % (41-53); Hemoglobin 12.2 g/dL (13.5-17.5); Lymphocytes Absolute Auto 1100 /uL (1100-4500); Mean Corpuscular HGB Conc 32.5 % (30-36); Mean Corpuscular Hemoglobin 28.5 PG (26-34); Mean Corpuscular Volume 87.7 fL (80-100); Platelet Count 180 X10^3/uL (150-400)
[2024-12-18 20:18] LABS: Alanine Aminotransferase 25 IU/L (<50); Albumin 4.3 g/dL (3.5-5.0); Albumin Globulin Ratio 1.2 (1.0-2.8); Alkaline Phosphatase 94 U/L (38-126); Blood Urea Nitrogen 21 mg/dL (9-20); Calcium 9.2 mg/dL (8.4-10.2); Carbon Dioxide 27 mmol/L (22-32); Chloride 103 mmol/L (98-107); Estimated Glomerular Filt Rate 36 mL/min (>60); Globulin 3.5 g/dL (1.7-4.1); Glucose 111 mg/dL (70-99); HEMOLYSIS < 15 (0-50); Potassium 4.7 mmol/L (3.4-5.1); Sodium 141 mmol/L (137-145); Total Protein 7.8 g/dL (6.3-8.2)
== END ==
PROVIDERS: PCP Family Medicine; Referring Provider Family Medicine; Visit Provider Family Medicine
DX: R06.00 Dyspnea, unspecified (principal); U09.9 Post COVID-19 condition, unspecified; J42 Unspecified chronic bronchitis; I10 Essential (primary) hypertension; R06.02 Shortness of breath; R53.83 Other fatigue; J47.0 Bronchiectasis with acute lower respiratory infection
CPT/HCPCS: 36415; 80053; 82310; 83970; 85025

== ENCOUNTER → 2024-12-20 14:17 | Outpatient (CLI) | payer MEDICARE, OTHER, SELFPAY ==
[2024-01-22 19:57] VITALS: BMI 27.3
--- NOTE | 2024-12-20 14:18 | DI.CT.S_ITS ---
PROCEDURE: CT CHEST WO CON
== END ==
LOC: CT 14:18
PROVIDERS: PCP Family Medicine; Referring Provider Family Medicine; Visit Provider Family Medicine
DX: J47.0 Bronchiectasis with acute lower respiratory infection (principal); R91.8 Other nonspecific abnormal finding of lung field; I10 Essential (primary) hypertension; R06.02 Shortness of breath; R53.83 Other fatigue; Z95.0 Presence of cardiac pacemaker
CPT/HCPCS: 71250

== ENCOUNTER → 2024-12-22 14:16 | Outpatient (CLI) | payer MEDICARE, OTHER, SELFPAY ==
[2024-01-22 19:57] VITALS: BMI 27.3
[2024-12-22 15:06] LABS: Hematocrit 36.5 % (41-53); Hemoglobin 11.7 g/dL (13.5-17.5)
[2024-12-22 15:47] LABS: Blood Urea Nitrogen 21 mg/dL (9-20); Calcium 9.1 mg/dL (8.4-10.2); Carbon Dioxide 26 mmol/L (22-32); Chloride 106 mmol/L (98-107); Estimated Glomerular Filt Rate 35 mL/min (>60); Glucose 96 mg/dL (70-99); HEMOLYSIS < 15 (0-50); Potassium 5.1 mmol/L (3.4-5.1); Sodium 141 mmol/L (137-145)
[2024-12-22 16:13] LABS: Protein (Total) Urine Random 40 mg/dL (0-12); Protein Creatinine Ratio Urine 0.42 GRAM/24H
== END ==
PROVIDERS: PCP Family Medicine; Referring Provider Student in an Organized Health Care Education/Training Program; Visit Provider Student in an Organized Health Care Education/Training Program
DX: D70.9 Neutropenia, unspecified (principal); D63.1 Anemia in chronic kidney disease; N05.9 Unspecified nephritic syndrome with unspecified morphologic changes; N25.81 Secondary hyperparathyroidism of renal origin
CPT/HCPCS: 36415; 80048; 82570; 83970; 84156; 85014; 85018